=== PATIENT | male | born 1950 | race Caucasian/White ===

== ENCOUNTER 2017-01-24 08:33 | Inpatient (IN) | payer MEDICARE ==
[2017-01-24] MEDS ORDERED: SODIUM CHLORIDE 0.9% 1,000 ML IV ONE (08:42)
--- NOTE | 2017-01-24 08:45 | ED ---
Altered Mental Status HPI - General Stated Complaint: Weakness Time Seen by Provider: 01/24/17 08:33 Source: patient, EMS, RN notes reviewed Mode of arrival: EMS - History of Present Illness Initial Comments: This is a 66-year-old male with a history of insulin-dependent diabetes who was found this morning sitting in his car by his employer. Patient diaphoretic so to respond. Patient states this morning when he got up he had a blood sugar 57 but then he took his insulin and did not eat yet. He stopped at a store gravity coffee a pop any cupcake which she did eat he drove to work and normally is her early but was late. He was found by his employer saying the car. Fire rescue arrived he had a 72 glucose level at that time is slow to respond and somewhat lethargic he has improved and route to. No other complaints at this time. No fevers chills nausea vomiting sweats. Patient states his mistake was taking his insulin with a low blood sugar this morning. No new changes in his insulin or his diet except for not eating this morning. MD Complaint: confusion, decreased responsiveness - Related Data Home Medications Medication Instructions Recorded Confirmed Aspirin 325 mg PO DAILY 01/24/17 01/24/17 Carboxymethylcellulose Sodium 1 drop BOTH EYES TID PRN 01/24/17 01/24/17 [Refresh Tears] Insulin Aspart [NovoLOG] See Protocol SQ AC-TID 01/24/17 01/24/17 Insulin Glargine [Lantus] 40 unit SQ BID 01/24/17 01/24/17 Lisinopril [Zestril] 20 mg PO DAILY 01/24/17 01/24/17 Metoprolol Tartrate [Lopressor] 50 mg PO BID 01/24/17 01/24/17 Simvastatin [Zocor] 40 mg PO HS 01/24/17 01/24/17 metFORMIN HCL [Metformin HCl] 1,000 mg PO BID 01/24/17 01/24/17 Allergies Allergy/AdvReac Type Severity Reaction Status Date / Time No Known Allergies Allergy Verified 01/24/17 09:57 Review of Systems ROS Statement: Those systems with pertinent positive or pertinent negative responses have been documented in the HPI. ROS Other: All systems not noted in ROS Statement are negative. General Exam - General Exam Comments Initial Comments: Is a well-developed well-nourished awake alert oriented 3 male General appearance: alert, in no apparent distress Head exam: Present: atraumatic, normocephalic, normal inspection Eye exam: Present: normal appearance, PERRL, EOMI. Absent: scleral icterus, conjunctival injection, periorbital swelling ENT exam: Present: mucous membranes dry Neck exam: Present: normal inspection. Absent: tenderness, meningismus, lymphadenopathy Respiratory exam: Present: normal lung sounds bilaterally. Absent: respiratory distress, wheezes, rales, rhonchi, stridor Cardiovascular Exam: Present: regular rate, normal rhythm, normal heart sounds. Absent: systolic murmur, diastolic murmur, rubs, gallop, clicks GI/Abdominal exam: Present: soft, normal bowel sounds. Absent: distended, tenderness, guarding, rebound, rigid Extremities exam: Present: normal inspection, full ROM, normal capillary refill. Absent: tenderness, pedal edema, joint swelling, calf tenderness Back exam: Present: normal inspection Neurological exam: Present: alert, oriented X3, CN II-XII intact Psychiatric exam: Present: normal affect, normal mood Skin exam: Present: warm, dry, intact, normal color, other (Patient's skin is currently dry however his clothing is somewhat moist). Absent: rash Course Vital Signs 01/24/17 01/24/17 09:22 10:27 Pulse Rate 61 66 Respiratory 16 17 Rate Blood Pressure 130/66 127/61 O2 Sat by Pulse 98 97 Oximetry - Reevaluation(s) Reevaluation #1: 01/24/17 10:37 Reevaluation the patient patient states he is feeling much improved his family has arrived and states he appears be back to normal. Patient denies having any chest pain shortness of breath or other symptoms other than the sweats and feeling well this morning. Reevaluation #2: 01/24/17 10:38 The patient was noted to become somewhat bradycardic with his heart rate in the upper 30s. He was asymptomatic Medical Decision Making - Medical Decision Making I did discuss the findings with the patient and his family members patient will be admitted he does have an elevated troponin currently no old EKGs are available for comparison. - Lab Data Result diagrams: 01/24/17 09:00 01/24/17 09:00 Lab Results 01/24/17 01/24/17 01/24/17 Range/Units 08:41 09:00 09:00 WBC 12.0 H (3.8-10.6) k/uL RBC 4.85 (4.30-5.90) m/uL Hgb 14.8 (13.0-17.5) gm/dL Hct 45.9 (39.0-53.0) % MCV 94.7 (80.0-100.0) fL MCH 30.4 (25.0-35.0) pg MCHC 32.1 (31.0-37.0) g/dL RDW 13.9 (11.5-15.5) % Plt Count 187 (150-450) k/uL Neutrophils % 85 % Lymphocytes % 7 % Monocytes % 5 % Eosinophils % 2 % Basophils % 1 % Neutrophils # 10.1 H (1.3-7.7) k/uL Lymphocytes # 0.8 L (1.0-4.8) k/uL Monocytes # 0.7 (0-1.0) k/uL Eosinophils # 0.2 (0-0.7) k/uL Basophils # 0.1 (0-0.2) k/uL Sodium (137-145) mmol/L Potassium (3.5-5.1) mmol/L Chloride (98-107) mmol/L Carbon Dioxide (22-30) mmol/L Anion Gap mmol/L BUN (9-20) mg/dL Creatinine (0.66-1.25) mg/dL Est GFR (MDRD) Af Amer (>60 ml/min/1.73 sqM) Est GFR (MDRD) Non-Af (>60 ml/min/1.73 sqM) Glucose (74-99) mg/dL POC Glucose (mg/dL) 117 H (75-99) mg/dL POC Glu [employer] Engineering Teacher ID Naima Jain Calcium (8.4-10.2) mg/dL Magnesium (1.6-2.3) mg/dL Total Bilirubin (0.2-1.3) mg/dL AST (17-59) U/L ALT (21-72) U/L Alkaline Phosphatase (38-126) U/L Total Creatine Kinase 90 (55-170) U/L CK-MB (CK-2) 1.3 (0.0-2.4) ng/mL CK-MB (CK-2) Rel Index 1.4 Troponin I 0.132 H* (0.000-0.034) ng/mL Total Protein (6.3-8.2) g/dL Albumin (3.5-5.0) g/dL 01/24/17 01/24/17 Range/Units 09:00 10:34 WBC (3.8-10.6) k/uL RBC (4.30-5.90) m/uL Hgb (13.0-17.5) gm/dL Hct (39.0-53.0) % MCV (80.0-100.0) fL MCH (25.0-35.0) pg MCHC (31.0-37.0) g/dL RDW (11.5-15.5) % Plt Count (150-450) k/uL Neutrophils % % Lymphocytes % % Monocytes % % Eosinophils % % Basophils % % Neutrophils # (1.3-7.7) k/uL Lymphocytes # (1.0-4.8) k/uL Monocytes # (0-1.0) k/uL Eosinophils # (0-0.7) k/uL Basophils # (0-0.2) k/uL Sodium 140 (137-145) mmol/L Potassium 4.2 (3.5-5.1) mmol/L Chloride 106 (98-107) mmol/L Carbon Dioxide 20 L (22-30) mmol/L Anion Gap 14 mmol/L BUN 12 (9-20) mg/dL Creatinine 0.67 (0.66-1.25) mg/dL Est GFR (MDRD) Af Amer >60 (>60 ml/min/1.73 sqM) Est GFR (MDRD) Non-Af >60 (>60 ml/min/1.73 sqM) Glucose 90 (74-99) mg/dL POC Glucose (mg/dL) 107 H (75-99) mg/dL POC Glu [employer] Engineering Teacher ID Kyrie Sandsle Calcium 9.7 (8.4-10.2) mg/dL Magnesium 1.5 L (1.6-2.3) mg/dL Total Bilirubin 0.7 (0.2-1.3) mg/dL AST 35 (17-59) U/L ALT 26 (21-72) U/L Alkaline Phosphatase 70 (38-126) U/L Total Creatine Kinase (55-170) U/L CK-MB (CK-2) (0.0-2.4) ng/mL CK-MB (CK-2) Rel Index Troponin I (0.000-0.034) ng/mL Total Protein 7.0 (6.3-8.2) g/dL Albumin 4.2 (3.5-5.0) g/dL - EKG Data -: EKG Interpreted by Me EKG shows normal: sinus rhythm (Sinus rhythm rate of 58 CT interval 2:30 QRS of 108 daily since QTC of/400 for 3 AV block left axis deviation low-voltage QRS and complete right bundle-branch block septal changes nonspecific age) - Radiology Data Radiology results: report reviewed (I did review the imaging and reports no acute findings.), image reviewed Critical Care Time Critical Care Time: Yes Critical Care Time: 31 minutes of critical care time which includes the monitoring of the EMS run and discussed with paramedics history physical lab and x-rays. Multiple re- evaluations the patient discussed with the patient regarding findings discussed with the admitting physician discussed with the patient's admission orders and documentation of the above Disposition Clinical Impression: Non-ST elevation myocardial infarction (NSTEMI), Hypoglycemia, Hypomagnesemia Disposition: ADMITTED IP TO THIS [facility] Condition: Stable Referrals: Braydon Torres DO [Primary Care Provider] - 1-2 days
[2017-01-24 08:49] LABS: Glucose,Whole Blood 117 mg/dL (75-99)
[2017-01-24 09:25] LABS: Basophils # (A) 0.1 k/uL (0-0.2); Basophils % (A) 1 %; CH 30.9; CHCM 32.8; Eosinophils # (A) 0.2 k/uL (0-0.7); Eosinophils % (A) 2 %; HCT 45.9 % (39.0-53.0); HDW 2.89; HGB 14.8 gm/dL (13.0-17.5); Luc # (Auto) 0.12; Luc % (Auto) 1; Lymphocytes # (A) 0.8 k/uL (1.0-4.8); Lymphocytes % (A) 7 %; MCH 30.4 pg (25.0-35.0); MCHC 32.1 g/dL (31.0-37.0); MCV 94.7 fL (80.0-100.0); Monocytes # (A) 0.7 k/uL (0-1.0); Monocytes % (A) 5 %; Neutrophils # (A) 10.1 k/uL (1.3-7.7); Neutrophils % (A) 85 %; RBC 4.85 m/uL (4.30-5.90); RDW 13.9 % (11.5-15.5); WBC (Perox) 12.14
[2017-01-24 09:40] LABS: ALT 26 U/L (21-72); AST 35 U/L (17-59); Alkaline Phosphatase 70 U/L (38-126); Anion Gap 14 mmol/L; Blood Urea Nitrogen 12 mg/dL (9-20); Calcium 9.7 mg/dL (8.4-10.2); Carbon Dioxide 20 mmol/L (22-30); Chloride 106 mmol/L (98-107); Glucose 90 mg/dL (74-99); Magnesium 1.5 mg/dL (1.6-2.3); Non-African American GFR(MDRD) >60 (>60 ml/min/1.73 sqM); Sodium 140 mmol/L (137-145); Total Bilirubin 0.7 mg/dL (0.2-1.3)
[2017-01-24 09:42] LABS: Potassium 4.2 mmol/L (3.5-5.1)
--- NOTE | 2017-01-24 09:46 | XR ---
EXAMINATION TYPE: XR chest 2V DATE OF EXAM: 01/24/2017 COMPARISON: NONE HISTORY: Altered mental status TECHNIQUE: Frontal and lateral views of the chest are obtained. FINDINGS: There is no focal air space opacity, pleural effusion, or pneumothorax seen. The cardiac silhouette size is enlarged. Spherical calcification with central lucency present in the region of th e right upper lobe. It measures approximately 2.3 cm. There are overlying cardiac leads. Prominent derek ng volumes suggest COPD. The osseous structures are intact. IMPRESSION: Cardiomegaly. Calcified nodule may be indicative of old granulomatous disease.
[2017-01-24] MEDS ORDERED: MAGNESIUM SULFATE-D5W PMX 1 GM in DEXTROSE/WATER 1 100ML.BAG IVPB ONE (10:06)
[2017-01-24 10:14] LABS: Creatine Kinase MB 1.3 ng/mL (0.0-2.4)
[2017-01-24 10:23] LABS: Troponin I 0.132 ng/mL (0.000-0.034)
[2017-01-24 10:36] LABS: Glucose,Whole Blood 107 mg/dL (75-99)
[2017-01-24] MEDS ORDERED: HEPARIN SODIUM,PORCINE 5,000 UNIT/ML 1 ML VIAL IV ONE (10:42)
[2017-01-24] MEDS ORDERED: NITROGLYCERIN SL TABS 0.4 MG TAB SUBLINGUAL PRN ×2 (10:42→14:01)
[2017-01-24] MEDS ORDERED: HEPARIN SODIUM,PORCINE/D5W PMX 25,000 UNIT in DEXTROSE/WATER 1 500ML.BAG IV SCH (10:45)
[2017-01-24] MEDS ORDERED: ARTIFICIAL TEARS-HYPROMELLOSE DROPS 15 ML BTL BOTH EYES PRN (10:45)
[2017-01-24 12:03] LABS: Glucose,Whole Blood 161 mg/dL (75-99)
[2017-01-24 12:27] LABS: Glucose,Whole Blood 154 mg/dL (75-99)
[2017-01-24] MEDS: SODIUM CHLORIDE 0.9% 1,000 ML IV SCH (12:27)
[2017-01-24] MEDS: INSULIN LISPRO (humaLOG) 300 UNIT/3 ML VIAL SQ SCH ×3 (12:28→21:23)
[2017-01-24] MEDS: NITROGLYCERIN OINT 1 INCH/GM PACKET TOPICAL SCH ×3 (12:31→23:21)
[2017-01-24] MEDS ORDERED: ATORVASTATIN 80 MG TAB PO STA (14:01)
[2017-01-24] MEDS ORDERED: ASPIRIN 325 MG TAB PO STA (14:01)
[2017-01-24] MEDS ORDERED: SODIUM CHLORIDE 0.9% 1,000 ML in EMPTY BAG 1 BAG IV ONE (14:01)
[2017-01-24] MEDS ORDERED: ALPRAZolam 0.25 MG TAB PO PRN (14:01)
[2017-01-24] MEDS ORDERED: ALPRAZolam 0.5 MG TAB PO PRN (14:01)
--- NOTE | 2017-01-24 14:18 | CONS ---
DATE OF CONSULTATION: CHIEF COMPLAINT: 1. Not feeling well. 2. Elevated troponin. This is a 66-year-old gentleman with history of insulin-requiring diabetes, hypertension, dyslipidemia, known coronary artery disease, status post prior myocardial infarction who used to see my associate, Dr. Marinelli, has not been seen by a staffing analyst in awhile. Comes in having had an episode of hypoglycemia where he found himself to be confused, out of sorts, and he has had episodes of hypoglycemia in the past, but also felt that there was something different this time due to which he came to the ER. He does not have any chest pain, does not have difficulty in breathing, palpitations, syncope, or focal neurological deficits. EKG in the ER revealed sinus bradycardia with evidence of prior anteroseptal myocardial infarction and at the time of my evaluation, he is appearing comfortable at rest and is free of symptoms. His troponin was elevated at 0.132. CPK and CK-MB are within normal limits. Creatinine is normal at 0.67. Hemoglobin is 14.8. Past medical history is significant for coronary artery disease, hypertension, dyslipidemia, insulin-requiring diabetes. Medications at home include Zocor 40 q. daily, insulin, metformin, Zestril, Lopressor, aspirin. ALLERGIES: No known drug allergies. FAMILY HISTORY: Negative for premature coronary artery disease. SOCIAL HISTORY: Negative for smoking, EtOH abuse, or drug abuse. REVIEW OF SYSTEMS: HEENT is unremarkable. CARDIAC: As described above. RESPIRATORY: As described above. GI: Negative. GENITOURINARY: Negative. ALLERGY/IMMUNOLOGY: Negative. SKIN: Negative. MUSCULOSKELETAL: Significant for arthritis. PSYCHOSOCIAL: Negative. ENDOCRINE: Negative. HEMATOLOGICAL: Negative. CONSTITUTIONAL: Negative. ONCOLOGICAL: Negative. HEMATOLOGICAL: Negative. The rest of the system review is not relevant. On exam, afebrile. Heart rate is 70 beats per minute, blood pressure 133/96, respirations 18, O2 sat is 98%. There is no jugular venous distention. Carotid upstroke is normal. There is no bruit. Chest is clear to auscultation and percussion. Heart exam reveals first and second heart sounds. No gallop. No murmur, no rub. Abdomen is soft, nontender. Exam of the extremities did not reveal any edema. Peripheral pulses are felt. STEM CLEANING MACHINE FEEDER exam did not reveal focal neurological deficits. Labs show a hemoglobin of 14.8. Platelet count is 187. Troponin is 0.1. Potassium is 4.2. Creatinine is 0.67. EKG is abnormal as described above. ASSESSMENT: 1. Non-ST segment elevation myocardial infarction. 2. Coronary artery disease, status post prior myocardial infarction. 3. Insulin-requiring diabetes with episodes of hypoglycemia. PLAN: Will continue the patient on IV heparin, aspirin, beta blockers, nitrates and MARJORIE inhibitors along with statins. I will obtain 2 more sets of troponins. I will obtain a 2-D echo to assess his LV function. The patient will probably need a heart catheterization for further evaluation.
[2017-01-24 14:59] LABS: Creatine Kinase MB 1.9 ng/mL (0.0-2.4)
[2017-01-24 15:03] LABS: Troponin I 0.119 ng/mL (0.000-0.034)
[2017-01-24 15:16] LABS: Hemoglobin A1C 7.8 % (4.2-6.1)
[2017-01-24] MEDS ORDERED: TEMAZEPAM 15 MG CAP PO PRN (16:49)
[2017-01-24] MEDS ORDERED: HYDROmorphone 1 MG/ML 1 ML SYRINGE IVP PRN (16:49)
[2017-01-24] MEDS ORDERED: HYDROcodone/APAP 5-325MG 1 EACH TAB PO PRN (16:49)
[2017-01-24 17:03] LABS: Glucose,Whole Blood 141 mg/dL (75-99)
[2017-01-24] MEDS: metFORMIN 500 MG TAB PO SCH (17:16)
[2017-01-24] MEDS ORDERED: HEPARIN SODIUM,PORCINE 5,000 UNIT/ML 1 ML VIAL ONE (17:25)
[2017-01-24] MEDS: ATORVASTATIN 20 MG TAB PO SCH (20:24)
[2017-01-24] MEDS: METOPROLOL TARTRATE 50 MG TAB PO SCH (20:24)
[2017-01-24 21:00] LABS: Glucose,Whole Blood 192 mg/dL (75-99)
--- NOTE | 2017-01-24 21:20 | HP ---
DATE OF ADMISSION: 01/24/2017 CHIEF COMPLAINT: Unresponsiveness and as well as hypoglycemia and elevated troponin. HISTORY OF PRESENT ILLNESS: This 66-year-old gentleman with a past history of coronary artery disease, myocardial infarction, diabetes type 2, history of DJD, history of diabetes, history of coronary artery disease, stent being followed by [facility] and in the outpatient setting. Apparently woke up this morning, the blood sugar was 50. Patient went to [employer] and got a donut and a coffee and the patient went to work. That is the last thing the patient remembers. Apparently, the employer found him sitting in his car and EMS was called. Blood sugar was found to be 57 and subsequently 72. The patient was taken to [place] and admitted to the hospital for further evaluation and treatment. On WBC found to be 12 and Troponin is 0.132 and 0.109. There is no history of chest pain, no history of palpitations, headache, or seizures. The patient was admitted to the hospital for further evaluation and treatment. Cardiology evaluation in progress. EKG done on admission, which showed diffuse ST-T changes and Q wave complexes. PAST MEDICAL HISTORY: History of coronary artery disease and stent. History of myocardial infarction, diabetes mellitus , history of hypertension, history of degenerative joint disease. History of coronary artery disease and stent. History of hernia repair. Medications prior to admission include: 1. NovoLog scale. 2. Zocor 40 mg q.h.s. 3. Refresh eye drops one drop both eyes t.i.d. p.r.n. 4. Metformin 1000 mg p.o. b.i.d. 5. Lopressor 50 mg daily. 6. Zestril 20 mg p.o. daily. 7. Lantus 50 units subcu b.i.d. 8. Aspirin 320 mg daily. ALLERGIES: None. FAMILY HISTORY: History of myocardial infarction in the family. SOCIAL HISTORY: Previous history of smoking. Occasional alcohol intake. REVIEW OF SYSTEMS: ENT: No diminished vision. No diminished hearing. CARDIOVASCULAR: as mentioned earlier. RESPIRATORY: As mentioned earlier. GI: No nausea or vomiting. GENITOURINARY: No dysuria. CENTRAL NERVOUS SYSTEM: No numbness or weakness. ALLERGY/IMMUNOLOGY: No asthma, hayfever. MUSCULOSKELETAL: As mentioned earlier. HEMATOLOGY/ONCOLOGY: No history of anemia. ENDOCRINE: History of diabetes mellitus. CONSTITUTIONAL: As mentioned earlier. Dermatology: Negative. RHEUMATOLOGY: Negative. PSYCHIATRY: As mentioned earlier. PHYSICAL EXAMINATION: The patient is alert and oriented times three. Pulse is 70, blood pressure 133/96. Respiratory rate 18. Temperature 97.9. Pulse ox 99% on 2 liters. HEENT: Conjunctivae normal. Oral mucosa moist. NECK: No jugular venous distention. No carotid bruit. No lymph node enlargement. CARDIOVASCULAR: S1, S2 muffled. No S3, no S4. RESPIRATORY: Breath sounds diminished at the bases. No rhonchi, no crackles. ABDOMEN: Soft, nontender. No mass palpable. LEGS: No edema. No swelling. Nervous system: Higher functions as mentioned. Moves all four limbs. No focal deficits. LYMPHATICS: No lymph nodes palpable in the neck, axillae or groin. SKIN: No ulcer, rash or bleeding. LABS: WBC 12, hemoglobin 14.8, glucose 107, troponin 0.132. ASSESSMENT: 1. Change in mental status, metabolic encephalopathy secondary to hypoglycemia. 2. Troponin 0.122, possible acute non- ST segment elevation and elevation myocardial infarction. 3. Hypoglycemia. 4. Increased WBC. 5. History of coronary artery disease and stent and myocardial infarction. 6. History of diabetes type 2. 7. Hypertension. 8. Hyperlipidemia. 9. History of degenerative joint disease. 10. History of hernia repair. 11. 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 12. Right inguinal hernia repair. 13. Remote history of nicotine dependence. 14. FULL CODE. RECOMMENDATIONS AND DISCUSSION: In this 66-year-old gentleman who presented with multiple complex medical issues. We will monitor the patient closely. Continue with the current medications. Continue symptomatic treatment. Otherwise, at this time, I recommend, monitor the blood sugars closely. Otherwise, I would also recommend cardiology consultation, antiplatelet agents and possible further evaluation regarding elevated troponin including cardiac catheterization. Resume the home medications. Prognosis guarded because of multiple complex medical issues. Further recommendations to follow. A copy of dictation is being forwarded to Dr. Torres who is the primary care physician. FARIDA
[2017-01-24] MEDS: INSULIN GLARGINE 100 UNIT/ML 10 ML VIAL SQ SCH (21:23)
[2017-01-24 21:53] LABS: Creatine Kinase MB 1.5 ng/mL (0.0-2.4)
[2017-01-24 21:59] LABS: Troponin I 0.128 ng/mL (0.000-0.034)
[2017-01-25] MEDS ORDERED: HEPARIN SODIUM,PORCINE 5,000 UNIT/ML 1 ML VIAL IV PRN (00:31)
[2017-01-25] MEDS ORDERED: HEPARIN SODIUM,PORCINE 5,000 UNIT/ML 1 ML VIAL IV ONE (00:31)
[2017-01-25 06:02] LABS: Glucose,Whole Blood 156 mg/dL (75-99)
[2017-01-25] MEDS: NITROGLYCERIN OINT 1 INCH/GM PACKET TOPICAL SCH ×3 (06:32→17:11)
[2017-01-25] MEDS: LISINOPRIL 20 MG TAB PO SCH (06:35)
[2017-01-25] MEDS: PANTOPRAZOLE 40 MG TABLET PO SCH (06:35)
[2017-01-25] MEDS: METOPROLOL TARTRATE 50 MG TAB PO SCH ×2 (06:35→21:31)
[2017-01-25] MEDS: ASPIRIN 325 MG TAB PO SCH (06:35)
[2017-01-25 06:38] LABS: Basophils # (A) 0.1 k/uL (0-0.2); Basophils % (A) 1 %; CH 31.1; CHCM 32.9; Eosinophils # (A) 0.3 k/uL (0-0.7); Eosinophils % (A) 3 %; HCT 42.3 % (39.0-53.0); HDW 2.82; HGB 13.9 gm/dL (13.0-17.5); Luc # (Auto) 0.15; Luc % (Auto) 2; Lymphocytes # (A) 1.5 k/uL (1.0-4.8); Lymphocytes % (A) 19 %; MCH 31.2 pg (25.0-35.0); MCHC 32.8 g/dL (31.0-37.0); Monocytes # (A) 0.4 k/uL (0-1.0); Monocytes % (A) 5 %; Neutrophils # (A) 5.6 k/uL (1.3-7.7); Neutrophils % (A) 70 %; RBC 4.45 m/uL (4.30-5.90); RDW 13.9 % (11.5-15.5); WBC (Perox) 8.48
[2017-01-25 06:47] LABS: Partial Thromboplastin Time 57.4 sec (22.0-30.0)
[2017-01-25 06:58] LABS: Anion Gap 11 mmol/L; Blood Urea Nitrogen 9 mg/dL (9-20); Calcium 9.2 mg/dL (8.4-10.2); Carbon Dioxide 23 mmol/L (22-30); Chloride 107 mmol/L (98-107); Cholesterol 156 mg/dL (<200); Glucose 152 mg/dL (74-99); HDL Cholesterol 43 mg/dL (40-60); Non-African American GFR(MDRD) >60 (>60 ml/min/1.73 sqM); Sodium 141 mmol/L (137-145); Triglycerides 136 mg/dL (<150)
[2017-01-25] MEDS: INSULIN LISPRO (humaLOG) 300 UNIT/3 ML VIAL SQ SCH ×4 (08:34→21:31)
[2017-01-25] MEDS ORDERED: IV FLUID CONTINUATION 1,000 ML IV ONE (08:50)
[2017-01-25] MEDS ORDERED: ASPIRIN 325 MG TAB PO SCH (09:00)
[2017-01-25] MEDS ORDERED: LIDOCAINE 2% INJ 20 MG/ML (20 ML MDV) ONE (09:01)
[2017-01-25] MEDS ORDERED: MIDAZOLAM 2 MG/2 ML VIAL ONE (09:11)
[2017-01-25] MEDS ORDERED: MIDAZOLAM 2 MG/2 ML VIAL IV ONE (09:13)
[2017-01-25] MEDS ORDERED: LIDOCAINE 2% INJ 20 MG/ML SQ ONE (09:15)
[2017-01-25] MEDS ORDERED: fentaNYL (PF) 50 MCG/ML 2 ML AMP ONE (09:17)
[2017-01-25] MEDS ORDERED: fentaNYL (PF) 50 MCG/ML 2 ML AMP IV ONE (09:19)
[2017-01-25] MEDS ORDERED: IOHEXOL 350 MG/ML 125ML BOTTLE INJ ONE (09:31)
[2017-01-25] MEDS ORDERED: RX INFO: IV CONTRAST WAS GIVEN 1 EACH MISC MISCELLANE PRN (09:48)
[2017-01-25] MEDS: metFORMIN 500 MG TAB PO SCH (10:07)
--- NOTE | 2017-01-25 10:10 | CC ---
INDICATION: Unstable angina in a patient with known CAD, status post prior myocardial infarction and angioplasty. PROCEDURE NOTE: After obtaining informed consent, left heart catheterization and coronary angiogram were performed via the right femoral artery using standard Sherry catheters. A femoral angiogram was performed and Angio-Seal was deployed for hemostasis at the end of the procedure. TOTAL SEDATION TIME: 30 minutes. This was conscious sedation. FINDINGS: 1. Hemodynamics: Left ventricular end-diastolic pressure is 16 mm. There is no significant gradient across the aortic valve. 2. Left ventriculogram: Left ventriculogram is performed, shows a dilated left ventricle with moderate LV dysfunction with an ejection fraction of 35%. There is apical hypokinesis and the basal inferior wall is hypokinetic. 3. Angiographic data: a. Right coronary artery: Right coronary artery is chronically occluded in its mid portion with extensive left to right collaterals to the distal RCA. b. Left main coronary artery appears calcified; in fact, the entire left coronary system appears calcified and can be visualized under fluoro. Left main itself is free of stenosis, divides into left anterior descending coronary artery and circumflex coronary artery. The OM branch was previously stented and the stent was patent. Proximal to the origin of the OM branch, there is a 60% to 70% stenosis. c. LAD shows multiple areas of segmental stenosis involving proximal, mid and distal, but it is diffusely diseased and there is no clear segment in the LAD that can be easily bypassed. There are 2 small caliber diagonal branches that are diffusely diseased. CONCLUSIONS: 1. Three-vessel coronary artery disease with chronic total occlusion of the right with [id number] collaterals. 2. Severe disease involving left anterior descending coronary artery, including in-stent re-stenosis and multiple segmental areas of stenosis. 3. Circumflex coronary artery shows a 60% to 70% stenosis in the obtuse marginal branch where the stent is patent, but in the very distal portion, there is an 80% to 90% stenosis. PLAN: I reviewed the angiographic data with Dr. Gunderson, the on-call material carrier. The patient has coronaries that are high risk for angioplasty both because of the technical risk involved because of heavily calcified vessels and also because the chance of recurrence is high. I am going to ask a cardiothoracic surgeon to evaluate the angiographic data and see if the targets are suitable for bypass.
[2017-01-25] MEDS: INSULIN GLARGINE 100 UNIT/ML 10 ML VIAL SQ SCH ×2 (10:21→21:31)
[2017-01-25] MEDS ORDERED: MD COMMUNICATION TO PHARMACY 1 EACH MISC PO ONE ×2 (10:26)
[2017-01-25 11:21] LABS: INR 1.1 (<1.1); Prothrombin Time 11.4 sec (9.0-12.0)
[2017-01-25 11:33] LABS: ALT 22 U/L (21-72); AST 20 U/L (17-59); Alkaline Phosphatase 72 U/L (38-126); Magnesium 1.4 mg/dL (1.6-2.3); Total Bilirubin 0.7 mg/dL (0.2-1.3); Total Protein 6.5 g/dL (6.3-8.2)
--- NOTE | 2017-01-25 11:40 | ECHOF ---
Referral Reason:chest pain MEASUREMENTS -------- HEIGHT: 180.3 cm WEIGHT: 103.9 kg BP: 133/96 IVSd: 1.5 cm (0.6 - 1.1) LVIDd: 5.4 cm (3.9 - 5.3) LVPWd: 1.5 cm (0.6 - 1.1) IVSs: 2.3 cm LVIDs: 3.4 cm LVPWs: 2.1 cm LAESV Index (A-L): 22.77 ml/m Ao Diam: 3.6 cm (2.0 - 3.7) AV Cusp: 1.8 cm (1.5 - 2.6) MV EXCURSION: 11.323 mm (> 18.000) MV EF SLOPE: 52 mm/s (70 - 150) EPSS: 1.0 cm MV E Hermilo: 1.00 m/s MV DecT: 293 ms MV A Hermilo: 1.07 m/s MV E/A Ratio: 0.93 FINDINGS -------- Sinus rhythm. This was a technically adequate study. There is moderate concentric left ventricular hypertrophy. Overall left ventricular systolic function is low-normal with, an EF between 50 - 55 %. The right ventricle is normal in size and function. Normal LA size by volume 22+/-6 ml/m2. The right atrium is normal in size. Aortic valve is trileaflet and is mildly thickened. There is no evidence of aortic regurgitation. There is no evidence of aortic stenosis. The mitral valve leaflets are mildly thickened. Mild mitral annular calcification present. There is trace to mild mitral regurgitation. Trace tricuspid regurgitation present. There is no evidence of pulmonary hypertension. The right ventricular systolic pressure, as measured by Doppler, is {RVSP}. The pulmonic valve is normal. The aortic root size is normal. Normal inferior vena cava with normal inspiratory collapse consistent with estimated right atrial pressure of 5 mmHg. The pericardium is normal. There is no pericardial effusion. CONCLUSIONS -------- 1. Sinus rhythm. 2. There is no evidence of pulmonary hypertension. 3. The right ventricular systolic pressure, as measured by Doppler, is {RVSP}. 4. The aortic root size is normal. 5. There is no pericardial effusion. 6. There is moderate concentric left ventricular hypertrophy. 7. Overall left ventricular systolic function is low-normal with, an EF between 50 - 55 %. 8. Normal LA size by volume 22+/-6 ml/m2. 9. Aortic valve is trileaflet and is mildly thickened. 10. The mitral valve leaflets are mildly thickened. 11. Mild mitral annular calcification present. 12. There is trace to mild mitral regurgitation. 13. Trace tricuspid regurgitation present. LEAD ARCHITECT: Sekou Huber RDCS
[2017-01-25 12:03] LABS: Glucose,Whole Blood 177 mg/dL (75-99)
[2017-01-25 12:04] LABS: Hepatitis B Surface Ag Index 0.05
[2017-01-25 12:10] LABS: Hepatitis B Core IgM Index 0.01
[2017-01-25 12:21] LABS: Hepatitis C Virus IgG Ab Negative (Negative); Hepatitis C Virus IgG Index 0.03
[2017-01-25 14:28] LABS: Appearance,Urine Clear (Clear); Bilirubin,Urine Negative (Negative); Glucose,Urine (UA) Negative (Negative); Ketones,Urine Negative (Negative); Leukocyte Esterase,Urine Negative (Negative); Nitrite,Urine Negative (Negative); PH, Urine 5.5 (5.0-8.0); Protein,Urine Negative (Negative); Specific Gravity,Urine 1.015 (1.001-1.035); UA Billing (MACRO vs. MICRO) CHEM; Urobilinogen,Urine <2.0 mg/dL (<2.0)
--- NOTE | 2017-01-25 15:37 | P.GSCN ---
History of Present Illness Consult date: 01/25/17 Reason for Consult: Evaluation for potential coronary artery bypass grafting Requesting physician: Jamel Amaro History of present illness: Patient is a 66 years old with past medical history of coronary artery disease status post stenting, myocardial infarction, type 2 diabetes mellitus, degenerative joint disease, who was admitted for an episode of hypoglycemia. He was also found to have mild troponin elevation. Patient has no history of chest pain. Cardiac catheterization performed today in view of the troponin leak and the diffuse ST segment changes on EKG showed triple-vessel coronary artery disease. Cardiothoracic surgical consult was called. Patient is status post stenting to circumflex artery in 2000 and to his LAD in 2001. 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 Past Anesthesia/Blood Transfusion Reactions: No Reported Reaction Date of Last Stent Placement:: 1999 Past Psychological History: No Psychological Hx Reported Additional Psychological History / Comment(s): Pt resides with his spouse. He is independent. He is a [place] . He served in [employer] from [id number]. Smoking Status: Former smoker Past Alcohol Use History: Occasional Additional Past Alcohol Use History / Comment(s): Pt started smoking as teen and quit during the time he served in [employer]. Past Drug Use History: None Reported - Past Family History Father Family Medical History: Myocardial Infarction ([place]) Additional Family Medical History / Comment(s): Father of a [place] at the age of 55yrs. Mother Family Medical History: Diabetes Mellitus Additional Family Medical History / Comment(s): Mother of complications of diabetes at the age of 56yrs. Medications and Allergies Home Medications Medication Instructions Recorded Confirmed Type Aspirin 325 mg PO DAILY 01/24/17 01/24/17 History Carboxymethylcellulose Sodium 1 drop BOTH EYES TID PRN 01/24/17 01/24/17 History [Refresh Tears] Insulin Aspart [NovoLOG] See Protocol SQ AC-TID 01/24/17 01/24/17 History Insulin Glargine [Lantus] 40 unit SQ BID 01/24/17 01/24/17 History Lisinopril [Zestril] 20 mg PO DAILY 01/24/17 01/24/17 History Metoprolol Tartrate [Lopressor] 50 mg PO BID 01/24/17 01/24/17 History Simvastatin [Zocor] 40 mg PO HS 01/24/17 01/24/17 History metFORMIN HCL [Metformin HCl] 1,000 mg PO BID 01/24/17 01/24/17 History Allergies Allergy/AdvReac Type Severity Reaction Status Date / Time No Known Allergies Allergy Verified 01/24/17 09:57 Surgical - Exam Vital Signs Pulse Resp BP Pulse Ox 61 16 130/66 98 01/24/17 09:22 01/24/17 09:22 01/24/17 09:22 01/24/17 09:22 - General well developed, well nourished, no distress - ENT no hearing loss, no congestion - Neck no masses, trachea midline - Respiratory normal respiratory effort, clear to auscultation - Cardiovascular Rhythm: regular Heart Sounds: normal: S1, S2 - Abdomen Obese - Genitourinary Deferred - Rectum Deferred - Integumentary no rash, no abnormal pigmentation - Neurologic no disoriented, no combative - Psychiatric oriented to time, oriented to person, oriented to place, speech is normal, memory intact Results - Labs 01/25/17 05:50 01/25/17 05:50 Abnormal Lab Results - Last 24 Hours (Table) 01/24/17 01/24/17 01/24/17 Range/Units 14:12 16:53 17:02 APTT 30.8 H (22.0-30.0) sec Glucose (74-99) mg/dL POC Glucose (mg/dL) 141 H (75-99) mg/dL Hemoglobin A1c 7.8 H (4.2-6.1) % Magnesium (1.6-2.3) mg/dL Total Creatine Kinase (55-170) U/L Troponin I (0.000-0.034) ng/mL 01/24/17 01/24/17 01/24/17 Range/Units 20:59 21:08 23:35 APTT 37.5 H (22.0-30.0) sec Glucose (74-99) mg/dL POC Glucose (mg/dL) 192 H (75-99) mg/dL Hemoglobin A1c (4.2-6.1) % Magnesium (1.6-2.3) mg/dL Total Creatine Kinase 54 L (55-170) U/L Troponin I 0.128 H* (0.000-0.034) ng/mL 01/25/17 01/25/17 01/25/17 Range/Units 05:50 05:50 06:01 APTT 57.4 H (22.0-30.0) sec Glucose 152 H (74-99) mg/dL POC Glucose (mg/dL) 156 H (75-99) mg/dL Hemoglobin A1c (4.2-6.1) % Magnesium 1.4 L (1.6-2.3) mg/dL Total Creatine Kinase (55-170) U/L Troponin I (0.000-0.034) ng/mL 01/25/17 Range/Units 11:55 APTT (22.0-30.0) sec Glucose (74-99) mg/dL POC Glucose (mg/dL) 177 H (75-99) mg/dL Hemoglobin A1c (4.2-6.1) % Magnesium (1.6-2.3) mg/dL Total Creatine Kinase (55-170) U/L Troponin I (0.000-0.034) ng/mL Diabetes panel 01/24/17 01/25/17 Range/Units 14:12 05:50 Sodium 141 (137-145) mmol/L Potassium 4.0 (3.5-5.1) mmol/L Chloride 107 (98-107) mmol/L Carbon Dioxide 23 (22-30) mmol/L BUN 9 (9-20) mg/dL Creatinine 0.70 (0.66-1.25) mg/dL Glucose 152 H (74-99) mg/dL Hemoglobin A1c 7.8 H (4.2-6.1) % Calcium 9.2 (8.4-10.2) mg/dL AST 20 (17-59) U/L ALT 22 (21-72) U/L Alkaline Phosphatase 72 (38-126) U/L Total Protein 6.5 (6.3-8.2) g/dL Albumin 3.8 (3.5-5.0) g/dL Triglycerides 136 (<150) mg/dL HDL Cholesterol 43 (40-60) mg/dL Thyroid panel 01/25/17 Range/Units 05:50 TSH 0.884 (0.465-4.680) mIU/L Calcium panel 01/25/17 Range/Units 05:50 Calcium 9.2 (8.4-10.2) mg/dL Albumin 3.8 (3.5-5.0) g/dL Pituitary panel 01/25/17 Range/Units 05:50 Sodium 141 (137-145) mmol/L Potassium 4.0 (3.5-5.1) mmol/L Chloride 107 (98-107) mmol/L Carbon Dioxide 23 (22-30) mmol/L BUN 9 (9-20) mg/dL Creatinine 0.70 (0.66-1.25) mg/dL Glucose 152 H (74-99) mg/dL Calcium 9.2 (8.4-10.2) mg/dL TSH 0.884 (0.465-4.680) mIU/L Adrenal panel 01/25/17 Range/Units 05:50 Sodium 141 (137-145) mmol/L Potassium 4.0 (3.5-5.1) mmol/L Chloride 107 (98-107) mmol/L Carbon Dioxide 23 (22-30) mmol/L BUN 9 (9-20) mg/dL Creatinine 0.70 (0.66-1.25) mg/dL Glucose 152 H (74-99) mg/dL Calcium 9.2 (8.4-10.2) mg/dL Total Bilirubin 0.7 (0.2-1.3) mg/dL AST 20 (17-59) U/L ALT 22 (21-72) U/L Alkaline Phosphatase 72 (38-126) U/L Total Protein 6.5 (6.3-8.2) g/dL Albumin 3.8 (3.5-5.0) g/dL - Imaging Additional studies: 2-D echo showed mild left ventricular dysfunction and no significant valvular abnormalities Cardiac catheterization showed a chronically known occluded right coronary artery, mild proximal circumflex stenosis with a patent stent in the very distal obtuse marginal stenosis. His LAD had severe in-stent and beyond the stent stenosis with diffuse disease in the mid to distal left anterior descending artery. Assessment and Plan Plan: 66 years old gentleman diabetic with a prior history of stenting and myocardial infarction. Patient had stent to his LAD and circumflex artery around 16 years ago. Current anatomy is not favorable for surgery especially in view of the diffuse disease of the distal left anterior descending artery and the absence of significant stenosis in the circumflex system. I would recommend PTCA stenting to his left anterior descending artery as a first step. This has been discussed with Dr. Amaro and with the patient in front of his daughter. Should you have any questions or concerns please don't hesitate to call me. Thank you for the privilege of this consult.
[2017-01-25 17:00] LABS: Glucose,Whole Blood 176 mg/dL (75-99)
[2017-01-25] MEDS: ATORVASTATIN 20 MG TAB PO SCH (21:31)
[2017-01-25 21:32] LABS: Glucose,Whole Blood 130 mg/dL (75-99)
[2017-01-26] MEDS: NITROGLYCERIN OINT 1 INCH/GM PACKET TOPICAL SCH ×2 (00:03→06:06)
[2017-01-26] MEDS: SODIUM CHLORIDE 0.9% 1,000 ML IV SCH ×5 (06:05→14:49)
[2017-01-26 06:14] LABS: Glucose,Whole Blood 95 mg/dL (75-99)
[2017-01-26 06:30] LABS: Basophils # (A) 0.1 k/uL (0-0.2); Basophils % (A) 1 %; CH 31.2; CHCM 33.1; Eosinophils # (A) 0.3 k/uL (0-0.7); Eosinophils % (A) 3 %; HCT 42.2 % (39.0-53.0); HDW 2.81; HGB 13.5 gm/dL (13.0-17.5); Luc # (Auto) 0.15; Luc % (Auto) 2; Lymphocytes # (A) 1.5 k/uL (1.0-4.8); Lymphocytes % (A) 19 %; MCH 30.4 pg (25.0-35.0); MCV 94.8 fL (80.0-100.0); Mean Platelet Volume 7.6; Monocytes # (A) 0.5 k/uL (0-1.0); Monocytes % (A) 6 %; Neutrophils # (A) 5.3 k/uL (1.3-7.7); Neutrophils % (A) 68 %; RBC 4.45 m/uL (4.30-5.90); RDW 13.9 % (11.5-15.5); WBC 7.8 k/uL (3.8-10.6); WBC (Perox) 7.76
[2017-01-26 06:42] LABS: Anion Gap 10 mmol/L; Blood Urea Nitrogen 10 mg/dL (9-20); Calcium 9.1 mg/dL (8.4-10.2); Carbon Dioxide 23 mmol/L (22-30); Chloride 107 mmol/L (98-107); Glucose 91 mg/dL (74-99); Non-African American GFR(MDRD) >60 (>60 ml/min/1.73 sqM); Potassium 3.9 mmol/L (3.5-5.1); Sodium 140 mmol/L (137-145)
[2017-01-26] MEDS: INSULIN LISPRO (humaLOG) 300 UNIT/3 ML VIAL SQ SCH ×3 (06:51→17:15)
[2017-01-26] MEDS: PANTOPRAZOLE 40 MG TABLET PO SCH (07:24)
--- NOTE | 2017-01-26 07:43 | PN ---
DATE OF SERVICE: 01/25/2017 This 66-year-old gentleman who was admitted with change in mental status and metabolic encephalopathy secondary to hypoglycemia, also had elevated troponin. The patient had a cardiac catheterization and the cardiac cath showed 3-vessel disease. The patient was seen by Dr. Larose and thought the coronary anatomy was not favorable for , recommend PTCA and stenting of the LAD as a first step was recommended. No chest or palpitation. No fever at this time. On exam, alert and oriented x3. Pulse is 70, blood pressure 118/66, respirations 20, temperature 98.4, pulse ox 94% on room air. HEENT: Conjunctivae normal. . NECK: No jugular venous distention. CARDIOVASCULAR: S1 and S2, muffled. RESPIRATORY: Breath sounds diminished at the bases. No rhonchi, no crackles. ABDOMEN: Soft, nontender. LEGS: No edema, no swelling. NERVOUS SYSTEM: No focal deficits. LABS: Glucose 176 and magnesium 1.4. ASSESSMENT: 1. Acute non-ST segment elevation myocardial infarction with a troponin of 0.132 present on admission with status post cardiac catheterization and 3-vessel coronary artery disease. 2. Change in mental status, metabolic encephalopathy secondary to hypoglycemia. 3. Increased WBC. 4. History of coronary artery disease and stent and myocardial infarction. 5. History of diabetes mellitus type 2. 6. Hypertension, essential. 7. Hyperlipidemia. 8. History of degenerative joint disease. 9. History of hernia repair. 10. 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 11. History of inguinal hernia repair right. 12. Remote history of nicotine dependence. 13. FULL CODE. RECOMMENDATIONS AND DISCUSSION: Recommend to continue current medications. Continue symptomatic treatment. Otherwise, at this time I would recommend continue the antiplatelets and follow closely with Cardiology. Possible stenting versus surgery. Further recommendations to follow. MTDD
[2017-01-26] MEDS: ASPIRIN 325 MG TAB PO SCH (08:21)
[2017-01-26] MEDS: LISINOPRIL 20 MG TAB PO SCH (08:21)
[2017-01-26] MEDS: METOPROLOL TARTRATE 50 MG TAB PO SCH (08:21)
[2017-01-26] MEDS: INSULIN GLARGINE 100 UNIT/ML 10 ML VIAL SQ SCH (09:11)
--- NOTE | 2017-01-26 10:53 | P.PN ---
Subjective Principal diagnosis: Non-STEMI This is a 66-year-old gentleman with history of hypertension, diabetes , hyperlipidemia, prior coronary artery disease, who presented to the hospital with a non-STEMI. He was taken to the cardiac catheterization lab by Dr. Amaro yesterday where the patient was found to have three-vessel coronary artery disease with a [employer] CONS[employer] of the right with [id number] collaterals, severe disease involving the LAD, including in-stent restenosis and multiple segmental areas of stenosis, circumflex coronary artery 60-70% disease in the obtuse marginal was stented is patent, but in the very distal portion there is an 80-90% stenosis. Cardiothoracic surgery was consulted to see the patient and felt that he was not a candidate for surgery. Dr. Amaro did speak with Dr Gunderson regarding the patient and the decision was made to maximize medical therapy. Patient was seen and examined this morning, denies any chest pain or difficulty in breathing. Blood pressure 130/60, heart rate in the 70s. CBC normal. Potassium 3.9, BUN 10, creatinine 0.7. Objective - Vital Signs Vital signs: Vital Signs Temp 98.4 F 01/26/17 08:00 Pulse 73 01/26/17 09:24 Resp 16 01/26/17 08:00 BP 116/58 01/26/17 09:24 Pulse Ox 96 01/26/17 09:24 Intake & Output 01/25/17 01/26/17 01/26/17 18:59 06:59 18:59 Intake Total 1400 600 Output Total 1775 1999 Balance -375 -1400 Weight 100.5 kg Intake: IV 1100 600 Sodium Chloride 0.9% 1, 1000 000 ml @ 100 mls/hr IV . Q10H ONE Rx#:[id number] Sodium Chloride 0.9% 1, 600 000 ml @ 75 mls/hr IV . [id number] [facility] Rx#:[id number] Oral 300 Output: Urine 1774 1999 Other: Voiding Method Urinal Urinal # Voids 2 - Exam PHYSICAL EXAMINATION: HEENT: Head is atraumatic, normocephalic. Pupils equal, round. Neck is supple. There is no elevated jugular venous pressure. HEART EXAMINATION: Heart S1, S2 normal. No murmur or gallop heard. CHEST EXAMINATION: Lungs are clear to auscultation and precussion. No chest wall tenderness is noted on palpation or with deep breathing. ABDOMEN: Soft, obese, nontender. Bowel sounds are heard. No organomegaly noted. Right groin soft, no evidence of any hematoma. EXTREMITIES: 2+ peripheral pulses with no evidence of peripheral edema and no calf tenderness noted. NEUROLOGIC patient is awake, alert and oriented -3. . - Labs CBC & Chem 7: 01/26/17 05:51 01/26/17 05:51 Labs: Abnormal Lab Results - Last 24 Hours (Table) 01/25/17 01/25/17 01/25/17 Range/Units 05:50 05:50 11:55 APTT 57.4 H (22.0-30.0) sec Glucose 152 H (74-99) mg/dL POC Glucose (mg/dL) 177 H (75-99) mg/dL Magnesium 1.4 L (1.6-2.3) mg/dL 01/25/17 01/25/17 Range/Units 16:56 21:30 APTT (22.0-30.0) sec Glucose (74-99) mg/dL POC Glucose (mg/dL) 176 H 130 H (75-99) mg/dL Magnesium (1.6-2.3) mg/dL Microbiology - Last 24 Hours (Table) 01/25/17 14:15 Urine Culture - Preliminary Urine,Voided Assessment and Plan (1) HTN (hypertension) Status: Acute (2) Hyperlipemia Status: Acute (3) Diabetes Status: Acute (4) CAD (coronary artery disease) Status: Acute (5) S/P cardiac catheterization Status: Acute (6) Hypoglycemia Status: Acute (7) Hypomagnesemia Status: Acute (8) Non-ST elevation myocardial infarction (NSTEMI) Status: Acute Plan: From cardiology's perspective, patient may be able to be discharged home on maximal medical therapy which includes aspirin 81 mg daily, Lipitor 40 mg daily , Cipro 20 mg daily, metoprolol tartrate 50 mg one tablet by mouth 3 times a day , we will discontinue the Nitropaste and put the patient on a small dose of Imdur. A follow-up appointment will be made in the office for the patient to see Dr. Amaro in 3 weeks. \ DNP note has been reviewed, I agree with a documented findings and plan of care. Patient was seen and examined.
[2017-01-26] MEDS ORDERED: ISOSORBIDE MONONITRATE ER 30 MG TAB.ER.24H PO SCH (11:00)
[2017-01-26 11:51] VITALS: RESP 18
[2017-01-26 12:10] LABS: Glucose,Whole Blood 153 mg/dL (75-99)
--- NOTE | 2017-01-26 13:01 | PN ---
ADDENDUM: A 66-year-old gentleman who is admitted to hospital with mild non-ST segment elevation [place], underwent cardiac catheterization that revealed diffuse 3-vessel coronary artery disease. This morning he is chest pain free, hemodynamically stable and is ambulating well. His angiographic data was reviewed by the cardiothoracic surgeons, who felt that he was not a candidate for surgical revascularization, has been reviewed by Dr. Gunderson, the on-call geothermal installer, who felt that he is at high at rest for restenosis. So the plan at this stage is to treat him with optimal medical therapy. Discharge him home and see how he does clinically. If he is doing well clinically, will continue with medical therapy. If he develops episodes of chest pain or shortness of breath, will bring him back and do high risk angioplasty of the LAD.
[2017-01-26] MEDS ORDERED: CLOPIDOGREL 75 MG TAB PO SCH (14:00)
[2017-01-26 16:54] LABS: Glucose,Whole Blood 135 mg/dL (75-99)
[2017-01-26 17:33] VITALS: BP 117/61; PULSE 71; TEMP 98
[2017-01-27] MEDS ORDERED: ASPIRIN 81 MG CHEW PO SCH (09:00)
[2017-01-27] MEDS ORDERED: ATORVASTATIN 40 MG TAB PO SCH (09:00)
--- NOTE | 2017-01-27 18:17 | DS ---
DATE OF ADMISSION: 01/24/2017 DATE OF DISCHARGE: 01/26/2017 FINAL DIAGNOSES: 1. Acute non-ST elevation myocardial infarction with a troponin 0.132, present on admission, status post cardiac catheterization and 3-vessel coronary artery disease. 2. Change in mental status, metabolic encephalopathy secondary to hypoglycemia. 3. Increased WBC. 4. History of coronary artery disease, myocardial infarction. 5. History of diabetes mellitus type 2. 6. Hypertension, essential. 7. Hyperlipidemia. 8. History of degenerative joint disease. 9. History of hernia repair. 10. Second toe amputation because of bone infection. 11. History of inguinal hernia repair, right. 12. Remote history of nicotine dependence. 13. FULL CODE. DISCHARGE DISPOSITION: The patient will be discharged in a stable condition with guarded prognosis. HISTORY OF PRESENT ILLNESS: This 66-year-old gentleman with a past medical history of multiple medical problems was admitted with acute non-ST segment elevation myocardial infarction and hypoglycemia. The patient was treated with symptomatically by Cardiology. Per cardiac catheterization, he has 3-vessel disease. Case was discussed with Cardiothoracic Surgery, who recommended medical treatment to which Cardiology concurred. Please refer to the Cardiology. The patient was also evaluated Cardiology he was thought to be at high risk for stent re-stenosis and the medical treatment was optimized. On exam, vitals are stable. CARDIOVASCULAR: S1 and S2 muffled. NERVOUS SYSTEM: No focal deficits. DISCHARGE ADVICE: 1. Diet is cardiac. 2. Activity limited until followup. 3. Follow up with Dr. Torres in 2 to 3 days. 4. Follow up to with Dr. Amaro as recommended. 5. Medications will be: a. Ecotrin 81 mg p.o. daily. b. Lipitor 40 mg p.o. daily. c. Refresh eye drops 1 p.o. daily. d. Plavix 75 mg p.o. daily. e. NovoLog scale. f. Lantus 40 units subcu b.i.d. g. Imdur ER 30 mg p.o. daily. h. Lasix 20 mg p.o. daily. i. Metformin 1000 mg p.o. b.i.d. j. Lopressor 50 mg. k. Nitrostat 0.4 sublingual p.r.n. Once again, the patient will be discharged in a stable condition with guarded prognosis. MTDD
== END 2017-01-26 18:01 | disposition home or self-care (01) | DRG 280 ==
LOC: EC 08:33 → 6SEL 10:46
PROVIDERS: ADMIT Hospitalist; ATTEND Hospitalist
PROC: B211YZZ Fluoroscopy of Multiple Coronary Arteries using Other Contrast (ICD-10-PCS; 2017-01-25)
PROC: B215YZZ Fluoroscopy of Left Heart using Other Contrast (ICD-10-PCS; 2017-01-25)
PROC: 4A023N7 Measurement of Cardiac Sampling and Pressure, Left Heart, Percutaneous Approach (ICD-10-PCS; principal; 2017-01-25 08:50)
DX: I21.4 Non-ST elevation (NSTEMI) myocardial infarction (principal); G93.41 Metabolic encephalopathy; E11.649 Type 2 diabetes mellitus with hypoglycemia without coma; E83.42 Hypomagnesemia; T82.855A Stenosis of coronary artery stent, initial encounter; I25.110 Atherosclerotic heart disease of native coronary artery with unstable angina pectoris; I10 Essential (primary) hypertension; E78.5 Hyperlipidemia, unspecified; I25.2 Old myocardial infarction; M20.001 Unspecified deformity of right finger(s); M19.91 Primary osteoarthritis, unspecified site; Z87.891 Personal history of nicotine dependence; Z79.82 Long term (current) use of aspirin; Z79.84 Long term (current) use of oral hypoglycemic drugs; Z79.4 Long term (current) use of insulin; Z79.899 Other long term (current) drug therapy; Z89.421 Acquired absence of other right toe(s); Z82.49 Family history of ischemic heart disease and other diseases of the circulatory system; Z83.3 Family history of diabetes mellitus; Y83.1 Surgical operation with implant of artificial internal device as the cause of abnormal reaction of the patient, or of later complication, without mention of misadventure at the time of the procedure
CPT/HCPCS: 36415; 71020; 80048; 80053; 80061; 80074; 81003; 82550; 82553; 83036; 83735; 84443; 84484; 85025; 85610; 85730; 87086; 93005; 93306; 93458

== ENCOUNTER 2017-02-09 23:30 | Inpatient (IN) | payer MEDICARE ==
[2017-02-09] MEDS ORDERED: ASPIRIN 81 MG CHEW PO STA (23:46)
[2017-02-09 23:54] LABS: Basophils # (A) 0.1 k/uL (0-0.2); Basophils % (A) 1 %; CH 30.6; CHCM 32.7; Eosinophils # (A) 0.3 k/uL (0-0.7); Eosinophils % (A) 3 %; HCT 43.1 % (39.0-53.0); HDW 2.99; HGB 13.9 gm/dL (13.0-17.5); Luc # (Auto) 0.19; Luc % (Auto) 2; Lymphocytes # (A) 1.1 k/uL (1.0-4.8); Lymphocytes % (A) 12 %; MCH 30.3 pg (25.0-35.0); MCHC 32.2 g/dL (31.0-37.0); MCV 94.3 fL (80.0-100.0); Mean Platelet Volume 7.6; Monocytes # (A) 0.5 k/uL (0-1.0); Monocytes % (A) 6 %; Neutrophils # (A) 6.9 k/uL (1.3-7.7); Neutrophils % (A) 76 %; RBC 4.58 m/uL (4.30-5.90); RDW 13.6 % (11.5-15.5); WBC (Perox) 9.23
[2017-02-10 00:02] LABS: ALT 37 U/L (21-72); AST 25 U/L (17-59); Alkaline Phosphatase 125 U/L (38-126); Anion Gap 13 mmol/L; Blood Urea Nitrogen 11 mg/dL (9-20); Calcium 9.5 mg/dL (8.4-10.2); Carbon Dioxide 23 mmol/L (22-30); Chloride 103 mmol/L (98-107); Glucose 290 mg/dL (74-99); Magnesium 1.5 mg/dL (1.6-2.3); Non-African American GFR(MDRD) >60 (>60 ml/min/1.73 sqM); Potassium 3.9 mmol/L (3.5-5.1); Sodium 139 mmol/L (137-145); Total Bilirubin 0.5 mg/dL (0.2-1.3); Total Protein 6.8 g/dL (6.3-8.2)
[2017-02-10 00:07] LABS: INR 1.1 (<1.1); Partial Thromboplastin Time 25.1 sec (22.0-30.0); Prothrombin Time 10.9 sec (9.0-12.0)
[2017-02-10 00:28] LABS: Creatine Kinase MB 2.2 ng/mL (0.0-2.4)
[2017-02-10 00:29] LABS: Troponin I 0.066 ng/mL (0.000-0.034)
[2017-02-10] MEDS ORDERED: NITROGLYCERIN SL TABS 0.4 MG TAB SUBLINGUAL PRN ×3 (01:42→12:42)
[2017-02-10] MEDS ORDERED: ENOXAPARIN 100 MG/ML SYRINGE SQ STA (01:54)
--- NOTE | 2017-02-10 01:57 | XR ---
EXAM: XR Chest, 1 View CLINICAL HISTORY: Reason: chest pain TECHNIQUE: Frontal view of the chest. COMPARISON: Chest radiograph on 01/24/2017 FINDINGS: Lungs/pleura: Left greater than right bibasilar opacities likely represent atelectasis versus scarring. No pleural effusion or pneumothorax. Heart/mediastinum: Stable mild enlargement of the cardiac silhouette. Soft tissues: Unremarkable. Bones: No acute fracture. Degenerative changes of the shoulders. IMPRESSION: Left greater than right bibasilar atelectasis versus scarring. No other acute abnormality.
--- NOTE | 2017-02-10 01:58 | ED ---
Chest Pain HPI - General Chief Complaint: Chest Pain Stated Complaint: Chest Pressure-Post Heart Attack 2 wks ago Time Seen by Provider: 02/09/17 23:45 Source: patient Mode of arrival: wheelchair Limitations: no limitations - History of Present Illness Initial Comments: This patient is a 66-year-old man who presents to be evaluated for substernal chest pain that developed about 3 hours ago after he had eaten some [place] food. The patient states it was a gassy or pressure feeling like he had to belch but could not. He also says it was somewhat similar to pains that brought him here for recent admission. The patient related that he had heart catheterization but was not a good candidate to have bypass. Patient also had some nausea and was feeling a little short of breath. Symptoms have resolved since she arrived here was placed on oxygen. MD Complaint: chest pain Onset/Timin -: hour(s) Onset: during rest Pain Location: substernal Pain Radiation: none Severity: moderate Quality: heaviness Consistency: now resolved Improves With: nothing Worsens With: nothing Anginal Symptoms: nausea, dyspnea Treatments Prior to Arrival: oxygen - Related Data Home Medications Medication Instructions Recorded Confirmed Carboxymethylcellulose Sodium 1 drop BOTH EYES TID PRN 01/24/17 02/09/17 [Refresh Tears] Insulin Aspart [NovoLOG] See Protocol SQ AC-TID 01/24/17 02/09/17 Insulin Glargine [Lantus] 40 unit SQ BID 01/24/17 02/09/17 Lisinopril [Zestril] 20 mg PO DAILY 01/24/17 02/09/17 Metoprolol Tartrate [Lopressor] 50 mg PO BID 01/24/17 02/09/17 Previous Rx's Medication Instructions Recorded Aspirin EC [Ecotrin Low Dose] 81 mg PO DAILY #30 tablet. 01/26/17 Atorvastatin [Lipitor] 40 mg PO DAILY #30 tab 01/26/17 Clopidogrel [Plavix] 75 mg PO DAILY #30 tab 01/26/17 Isosorbide Mononitrate ER [Imdur] 30 mg PO DAILY #30 tab 01/26/17 Nitroglycerin Sl Tabs [Nitrostat] 0.4 mg SUBLINGUAL Q5M PRN #25 tab 01/26/17 metFORMIN HCL [Metformin HCl] 1,000 mg PO BID #0 01/26/17 Allergies Allergy/AdvReac Type Severity Reaction Status Date / Time No Known Allergies Allergy Verified 02/09/17 23:47 Review of Systems ROS Statement: Those systems with pertinent positive or pertinent negative responses have been documented in the HPI. ROS Other: All systems not noted in ROS Statement are negative. Constitutional: Denies: fever, chills Respiratory: Reports: as per HPI, dyspnea. Denies: cough Cardiovascular: Reports: chest pain. Denies: palpitations, orthopnea, edema Gastrointestinal: Reports: nausea. Denies: abdominal pain, vomiting, melena, hematochezia Genitourinary: Denies: dysuria, hematuria Musculoskeletal: Denies: back pain Skin: Denies: rash Neurological: Denies: headache, weakness, numbness Psychiatric: Reports: anxiety EKG Findings - EKG Comments: EKG Findings:: Low voltage QRS complexes - EKG Results: EKG: interpreted by MARIANO, sinus rhythm (Right proximal 92 bpm) - Blocks, [place], Hypertrophy, ST Abn: AV and intraventricular conduction: 1 AV block, right bundle branch block (fixed /intermittent, complete/incomplete) (Incomplete) QRS axis and voltage: left axis deviation (-30 to -90) Past Medical History Past Medical History: Coronary Artery Disease (CAD), Diabetes Mellitus, Hyperlipidemia, Hypertension, Osteoarthritis (OA) Additional Past Medical History / Comment(s): IDDM type II History of Any Multi-Drug Resistant Organisms: None Reported Past Surgical History: Heart Catheterization With Stent, Hernia Repair Additional Past Surgical History / Comment(s): 1999 PCI with stents x3 per pt, R foot's 2nd toe amp due to bone infection, R inguinal hernia repair as child, 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 Past Anesthesia/Blood Transfusion Reactions: No Reported Reaction Date of Last Stent Placement:: 1999 Past Psychological History: No Psychological Hx Reported Smoking Status: Former smoker Past Alcohol Use History: Occasional Past Drug Use History: None Reported - Past Family History Father Family Medical History: Myocardial Infarction ([place]) Additional Family Medical History / Comment(s): Father of a [place] at the age of 55yrs. Mother Family Medical History: Diabetes Mellitus Additional Family Medical History / Comment(s): Mother of complications of diabetes at the age of 56yrs. General Exam Limitations: no limitations General appearance: alert, in no apparent distress, obese Head exam: Present: atraumatic, normocephalic Eye exam: Present: normal appearance ENT exam: Present: mucous membranes dry Neck exam: Present: normal inspection Respiratory exam: Present: normal lung sounds bilaterally. Absent: respiratory distress, wheezes, rales, rhonchi Cardiovascular Exam: Present: regular rate, normal rhythm, systolic murmur. Absent: diastolic murmur, rubs, gallop GI/Abdominal exam: Present: soft. Absent: distended, tenderness, guarding, rebound, rigid Extremities exam: Present: normal inspection, normal capillary refill. Absent: pedal edema, calf tenderness Back exam: Present: normal inspection. Absent: CVA tenderness (R), CVA tenderness (L) Neurological exam: Present: alert Skin exam: Present: warm, dry, intact, normal color. Absent: rash Course Vital Signs 02/09/17 02/10/17 02/10/17 23:34 01:26 02:20 Temperature 97 F L Pulse Rate 88 84 68 Respiratory 20 20 16 Rate Blood Pressure 175/83 151/82 138/62 O2 Sat by Pulse 98 95 98 Oximetry Disposition Clinical Impression: Chest pain, Non-ST elevation myocardial infarction (NSTEMI) Disposition: ADMITTED IP TO THIS HOSP Condition: Poor
[2017-02-10 03:41] VITALS: BMI 32.5
[2017-02-10] MEDS: SODIUM CHLORIDE 0.9% 1,000 ML IV SCH (06:26)
[2017-02-10 07:49] LABS: Creatine Kinase MB 20.6 ng/mL (0.0-2.4); Troponin I 5.95 ng/mL (0.000-0.034)
--- NOTE | 2017-02-10 08:09 | P.CRDCN ---
History of Present Illness Consult date: 02/10/17 Requesting physician: Jb Palmer Consult reason: chest pain Chief complaint: Chest pain History of present illness: This is a pleasant 66-year-old gentleman with history of diabetes, hypertension, hyperlipidemia, CAD with prior stent placement, who was recently in the hospital approximately 2 weeks ago with a non-Q-wave myocardial infarction. He underwent a cardiac catheterization by Dr. Sal at that time and patient was found to have three-vessel coronary artery disease with a CRM SOLUTION ARCHITECT of the RCA with [id number] collaterals, severe disease involving the LAD including in-stent restenosis and multiple segmental areas of stenosis, 60-70% stenosis of the circumflex in the obtuse marginal branch where the stent is patent but in the very distal portion there was a new 80-90% stenosis. Films were reviewed by Dr. Gunderson who felt that his coronaries were high risk for angioplasty. Subsequent to that a surgical consultation was requested and the recommendation suggested that the patient's current anatomy was not favorable for surgery, they recommended PTCA and stenting of the LAD. Patient was discharged home on maximal medical therapy. He presents to the hospital on this occasion with an episode of chest pressure and heaviness which started last evening. Patient states he took his insulin and his medications to see if the symptoms would subside, he then states he had an episode of vomiting. Pressure persisted and he came to the emergency room for further evaluation. EKG on arrival here showed a normal sinus rhythm with incomplete right bundle branch block pattern and nonspecific ST-T wave changes. Chest x-ray revealed left greater than right bibasilar atelectasis. CBC normal, d-dimer 0.43, potassium 3.9, BUN 11, creatinine 0.9. Initial troponin on presentation here 0.066, subsequent troponin 5.9. Echocardiogram with Doppler study which was performed 2 weeks ago revealed an ejection fraction of 50-55%. Patient was initiated here on Lovenox as well as aspirin. At the time of my examination this morning, patient is currently chest pain-free. 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 Past Anesthesia/Blood Transfusion Reactions: No Reported Reaction Date of Last Stent Placement:: 1999 Past Psychological History: No Psychological Hx Reported Additional Psychological History / Comment(s): Pt resides with his spouse. He is independent. He is a [place] . He served in [employer] from [id number]. Smoking Status: Former smoker Past Alcohol Use History: Occasional Past Drug Use History: None Reported - Past Family History Father Family Medical History: Myocardial Infarction (FL) Additional Family Medical History / Comment(s): Father of a [place] at the age of 55yrs. Mother Family Medical History: Diabetes Mellitus Additional Family Medical History / Comment(s): Mother of complications of diabetes at the age of 56yrs. Medications and Allergies Home Medications Medication Instructions Recorded Confirmed Type Carboxymethylcellulose Sodium 1 drop BOTH EYES TID PRN 01/24/17 02/09/17 History [Refresh Tears] Insulin Aspart [NovoLOG] See Protocol SQ AC-TID 01/24/17 02/09/17 History Insulin Glargine [Lantus] 40 unit SQ BID 01/24/17 02/09/17 History Lisinopril [Zestril] 20 mg PO DAILY 01/24/17 02/09/17 History Metoprolol Tartrate [Lopressor] 50 mg PO BID 01/24/17 02/09/17 History Allergies Allergy/AdvReac Type Severity Reaction Status Date / Time No Known Allergies Allergy Verified 02/09/17 23:47 Physical Exam Vitals: Vital Signs Temp Pulse Pulse Resp BP BP Pulse Ox 02/10/17 03:51 97.8 F 83 18 97/38 95 02/10/17 02:41 97.8 F 83 17 97/38 95 02/10/17 02:20 68 16 138/62 98 02/10/17 01:26 84 20 151/82 95 02/09/17 23:34 97 F L 88 20 175/83 98 Intake and Output 02/09/17 02/10/17 02/10/17 22:59 06:59 14:59 Output Total 400 Balance -400 Output: Urine 400 Other: Voiding Method Toilet Weight 103.1 kg PHYSICAL EXAMINATION: HEENT: Head is atraumatic, normocephalic. Pupils equal, round. Neck is supple. There is no elevated jugular venous pressure. HEART EXAMINATION: Heart S1, S2 normal. No murmur or gallop heard. CHEST EXAMINATION: Lungs are clear to auscultation and precussion. No chest wall tenderness is noted on palpation or with deep breathing. ABDOMEN: Soft, obese, nontender. Bowel sounds are heard. No organomegaly noted. EXTREMITIES: 2+ peripheral pulses with no evidence of peripheral edema and no calf tenderness noted. NEUROLOGIC patient is awake, alert and oriented -3. . Results 02/10/17 06:34 02/09/17 23:42 Cardiac Enzymes 02/09/17 02/09/17 02/10/17 Range/Units 23:42 23:42 06:34 AST 25 (17-59) U/L CK-MB (CK-2) 2.2 20.6 H* (0.0-2.4) ng/mL Troponin I 0.066 H* 5.950 H* (0.000-0.034) ng/mL Coagulation 02/09/17 Range/Units 23:42 PT 10.9 (9.0-12.0) sec APTT 25.1 (22.0-30.0) sec CBC 02/09/17 Range/Units 23:42 WBC 9.0 (3.8-10.6) k/uL RBC 4.58 (4.30-5.90) m/uL Hgb 13.9 (13.0-17.5) gm/dL Hct 43.1 (39.0-53.0) % Plt Count 184 (150-450) k/uL Comprehensive Metabolic Panel 02/09/17 Range/Units 23:42 Sodium 139 (137-145) mmol/L Potassium 3.9 (3.5-5.1) mmol/L Chloride 103 (98-107) mmol/L Carbon Dioxide 23 (22-30) mmol/L BUN 11 (9-20) mg/dL Creatinine 0.90 (0.66-1.25) mg/dL Glucose 290 H (74-99) mg/dL Calcium 9.5 (8.4-10.2) mg/dL AST 25 (17-59) U/L ALT 37 (21-72) U/L Alkaline Phosphatase 125 (38-126) U/L Total Protein 6.8 (6.3-8.2) g/dL Albumin 4.3 (3.5-5.0) g/dL Current Medications Generic Name Dose Route Start Last Admin Trade Name Tobiasq PRN Reason Stop Dose Admin Aspirin 325 mg 02/11/17 09:00 Aspirin PO DAILY [facility] Enoxaparin Sodium 100 mg 02/10/17 09:00 Lovenox SQ BID [facility] Sodium Chloride 1,000 mls @ 20 mls/hr 02/10/17 01:45 02/10/17 06:26 Saline 0.9% IV Not Given .Q24H [facility] Nitroglycerin 0.4 mg 02/10/17 01:42 Nitrostat SUBLINGUAL Q5M PRN Chest Pain Intake and Output 02/09/17 02/10/17 02/10/17 22:59 06:59 14:59 Output Total 400 Balance -400 Output: Urine 400 Other: Voiding Method Toilet Weight 103.1 kg 02/09/17 23:42 02/09/17 23:42 EKG Interpretations (text) EKG shows normal sinus rhythm with an incomplete right bundle branch block pattern and nonspecific ST-T wave changes Assessment and Plan Plan: Assessment and plan #1 non-ST elevation myocardial infarction #2 recent admission to the hospital 2 weeks ago with a non-ST elevation [place]. Cardiac catheterization was performed at that time which revealed three-vessel coronary artery disease with a CRM SOLUTION ARCHITECT of the RCA, severe disease involving the LAD with evidence of in-stent restenosis and multiple segmental areas of stenosis, 60-70% circumflex stenosis in the OM, as well as an 80-90% distal stenosis. Maximal medical therapy advised at that time. #3 diabetes #4 hypertension #5 hyperlipidemia Plan We'll discontinue the Lovenox and initiate IV heparin. Continue aspirin. Resume statin, beta esthela, MARJORIE inhibitor, and Plavix. We will repeat an echocardiogram with Doppler study to see if there is any new wall motion abnormalities. Patient's case was discussed with Dr. Gunderson who will proceed with angioplasty today, patient was explained that it is a high risk situation, the risks and benefits were explained in detail. DNP note has been reviewed, I agree with a documented findings and plan of care. Patient was seen and examined.
[2017-02-10] MEDS ORDERED: HEPARIN SODIUM,PORCINE 5,000 UNIT/ML 1 ML VIAL IV PRN (08:10)
[2017-02-10] MEDS ORDERED: HEPARIN SODIUM,PORCINE 5,000 UNIT/ML 1 ML VIAL IV ONE (08:10)
[2017-02-10] MEDS ORDERED: HEPARIN SODIUM,PORCINE/D5W PMX 25,000 UNIT in DEXTROSE/WATER 1 500ML.BAG IV SCH (08:30)
[2017-02-10 08:44] LABS: Basophils # (A) 0.1 k/uL (0-0.2); Basophils % (A) 1 %; CH 30.3; CHCM 32.8; Eosinophils # (A) 0.4 k/uL (0-0.7); Eosinophils % (A) 4 %; HCT 40.7 % (39.0-53.0); HDW 2.95; HGB 13.2 gm/dL (13.0-17.5); Luc % (Auto) 2; Lymphocytes # (A) 1.5 k/uL (1.0-4.8); Lymphocytes % (A) 17 %; MCH 30.2 pg (25.0-35.0); MCHC 32.5 g/dL (31.0-37.0); Mean Platelet Volume 8.1; Monocytes # (A) 0.6 k/uL (0-1.0); Monocytes % (A) 6 %; Neutrophils # (A) 6.2 k/uL (1.3-7.7); Neutrophils % (A) 69 %; RBC 4.38 m/uL (4.30-5.90); RDW 13.5 % (11.5-15.5); WBC 8.9 k/uL (3.8-10.6); WBC (Perox) 9.05
[2017-02-10 08:54] LABS: INR 1.1 (<1.1); Partial Thromboplastin Time 30.3 sec (22.0-30.0); Prothrombin Time 11.3 sec (9.0-12.0)
[2017-02-10] MEDS: METOPROLOL TARTRATE 50 MG TAB PO SCH ×2 (08:56→20:51)
[2017-02-10] MEDS: ATORVASTATIN 40 MG TAB PO SCH (08:56)
[2017-02-10] MEDS ORDERED: CLOPIDOGREL 75 MG TAB PO SCH (09:00)
[2017-02-10] MEDS ORDERED: ENOXAPARIN 100 MG/ML SYRINGE SQ SCH (09:00)
[2017-02-10] MEDS ORDERED: SODIUM CHLORIDE 0.9% 1,000 ML in EMPTY BAG 1 BAG IV ONE (09:21)
[2017-02-10] MEDS ORDERED: ALPRAZolam 0.5 MG TAB PO PRN (09:21)
[2017-02-10] MEDS ORDERED: ASPIRIN 325 MG TAB PO STA (09:21)
[2017-02-10] MEDS ORDERED: ALPRAZolam 0.25 MG TAB PO PRN (09:21)
[2017-02-10] MEDS ORDERED: ATORVASTATIN 40 MG TAB PO STA (09:21)
[2017-02-10] MEDS ORDERED: LIDOCAINE 2% INJ 20 MG/ML (20 ML MDV) ONE (11:04)
[2017-02-10] MEDS: LISINOPRIL 20 MG TAB PO SCH (11:12)
[2017-02-10] MEDS ORDERED: fentaNYL (PF) 50 MCG/ML 2 ML AMP ONE (11:28)
[2017-02-10] MEDS ORDERED: IV FLUID CONTINUATION 1,000 ML IV ONE (11:37)
[2017-02-10] MEDS ORDERED: fentaNYL (PF) 50 MCG/ML 2 ML AMP IV ONE (11:40)
[2017-02-10] MEDS ORDERED: LIDOCAINE 2% INJ 20 MG/ML SQ ONE ×2 (11:42)
[2017-02-10] MEDS ORDERED: BIVALIRUDIN BOLUS 250 MG/50 ML IV ONE (11:45)
[2017-02-10] MEDS ORDERED: BIVALIRUDIN 250 MG in SODIUM CHLORIDE 0.9% 50 ML IV ONE (11:45)
[2017-02-10] MEDS ORDERED: NITROGLYCERIN 1000MCG/10ML SYRINGE INTRACORON ONE (11:56)
[2017-02-10] MEDS ORDERED: IOHEXOL 350 MG/ML 125ML BOTTLE INJ ONE (12:31)
--- NOTE | 2017-02-10 12:37 | ECHOF ---
Referral Reason:NSTEMI MEASUREMENTS -------- HEIGHT: 152.4 cm WEIGHT: 103.0 kg BP: 140/60 IVSd: 1.3 cm (0.6 - 1.1) LVIDd: 5.2 cm (3.9 - 5.3) LVPWd: 1.3 cm (0.6 - 1.1) LVIDs: 3.7 cm LA Diam: 5.0 cm (2.7 - 3.8) LAESV Index (A-L): 54.22 ml/m Ao Diam: 3.9 cm (2.0 - 3.7) LA Diam: 5.6 cm (2.7 - 3.8) AV Cusp: 1.4 cm (1.5 - 2.6) EPSS: 0.6 cm MV E Hermilo: 0.69 m/s MV DecT: 281 ms MV A Hermilo: 1.03 m/s MV E/A Ratio: 0.67 RAP: 5.00 mmHg RVSP: 13.79 mmHg MV EF SLOPE: 87.39 mm/s (70 - 150) MV EXCURSION: 19.82 mm (> 18.000) FINDINGS -------- Sinus rhythm. This was a techncally difficult study with suboptimal views, , Definity utilized for enhancement of images. There is mild concentric left ventricular hypertrophy. Overall left ventricular systolic function is mild-moderately impaired with, an EF between 40 - 45 %. Anterseptal Hypokinesis [place] Hypokinesis. Distal Septal Hypokinesis. The right ventricle is normal in size. LA is severely dilated >40 ml/m2 The right atrial size is normal. 1.5MG OF DEFINITY UTLIZED: 2 OR MORE WALL SEGMENTS NOT VISUALIZED. There is mild aortic valve sclerosis. There is no evidence of aortic regurgitation. Mild mitral annular calcification present. Mild mitral regurgitation is present. Mild tricuspid regurgitation present. There is no evidence of pulmonary hypertension. The right ventricular systolic pressure, as measured by Doppler, is 13.79mmHg. The pulmonic valve was not well visualized. The aortic root size is normal. There is no pericardial effusion. CONCLUSIONS -------- 1. This was a techncally difficult study with suboptimal views, , Definity utilized for enhancement of images. 2. Mild mitral annular calcification present. 3. Mild mitral regurgitation is present. 4. Mild tricuspid regurgitation present. 5. There is no evidence of pulmonary hypertension. 6. The right ventricular systolic pressure, as measured by Doppler, is 13.79mmHg. 7. The pulmonic valve was not well visualized. 8. There is mild concentric left ventricular hypertrophy. 9. Overall left ventricular systolic function is mild-moderately impaired with, an EF between 40 - 45 %. 10. Anterseptal Hypokinesis 11. [place] Hypokinesis. 12. Distal Septal Hypokinesis. 13. LA is severely dilated >40 ml/m2 14. 1.5MG OF DEFINITY UTLIZED: 2 OR MORE WALL SEGMENTS NOT VISUALIZED. 15. There is mild aortic valve sclerosis. DIET CLERK: Halina Prather RDCS
[2017-02-10] MEDS ORDERED: ZOLPIDEM 5 MG TAB PO PRN (12:42)
[2017-02-10] MEDS ORDERED: MAG HYDROX/AL HYDROX/SIMETH 30 ML CUP PO PRN (12:42)
[2017-02-10] MEDS ORDERED: ATROPINE SULFATE 0.1 MG/ML 10ML SYRINGE IV PRN (12:42)
[2017-02-10] MEDS ORDERED: RX INFO: IV CONTRAST WAS GIVEN 1 EACH MISC MISCELLANE PRN (12:42)
[2017-02-10] MEDS ORDERED: SODIUM CHLORIDE 0.9% 1,000 ML IV SCH (12:45)
[2017-02-10] MEDS ORDERED: Magnesium Replacement Protocol 1 EACH MISC MISCELLANE PRN (13:50)
[2017-02-10] MEDS: ISOSORBIDE MONONITRATE ER 30 MG TAB.ER.24H PO SCH (13:56)
[2017-02-10 15:18] LABS: Creatine Kinase MB 15.5 ng/mL (0.0-2.4); Troponin I 6.43 ng/mL (0.000-0.034)
[2017-02-10] MEDS: INSULIN LISPRO (humaLOG) 300 UNIT/3 ML VIAL SQ SCH ×2 (17:14→20:52)
[2017-02-10] MEDS: MAGNESIUM SULFATE-D5W PMX 1 GM in DEXTROSE/WATER 1 100ML.BAG IVPB SCH ×2 (17:15→20:51)
[2017-02-10 17:23] LABS: Glucose,Whole Blood 165 mg/dL (75-99)
--- NOTE | 2017-02-10 19:49 | HP ---
DATE OF ADMISSION: 02/10/2017 CHIEF COMPLAINT: Chest pain. HISTORY OF PRESENT ILLNESS: Mr. Brantley is a 66-year-old male with known history of coronary artery disease with prior stent placement and recent cardiac catheterization with triple vessel disease and distal severe coronary artery disease and hypertension, diabetes mellitus , came to the hospital with complaints of chest pressure and heaviness which started yesterday evening and the patient did take nitroglycerin which did not subside his pain. Patient also had an episode of vomiting. Came to the emergency room for further evaluation. EKG showed normal sinus rhythm and his initial troponin level at 0.066 and subsequently went up to 5.9. The patient was initiated on Lovenox and changed to heparin IV. Cardiology has seen the patient and recommended cardiac catheterization and was taken to labor relations consultant and the patient underwent coronary artery stenting today. Currently patient is chest pain free. REVIEW OF SYSTEMS: CONSTITUTIONAL: No fever. No chills. RESPIRATORY: No cough or sputum production. CARDIOVASCULAR: No chest pain or shortness of breath. ABDOMEN: No nausea or vomiting, abdominal pain. GENITOURINARY: Negative. ENDOCRINE: Negative. PSYCHIATRIC: Negative. SKIN: Negative. All other 14 point review of systems negative except as above. PAST MEDICAL HISTORY: Coronary artery disease with history of stent placement several years ago and recent cardiac catheterization and triple vessel disease. Diabetes mellitus and hypertension. Hyperlipidemia. Osteoarthritis. Diabetes type 2. PAST SURGICAL HISTORY: Cardiac catheterization and stent placement. Hernia repair, history of PCI in 1999 with stents times three. 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 Right inguinal hernia repair ( ), right hand distal pinky amputation due to industrial accident. SOCIAL HISTORY: The patient lives with his spouse. He is independent. He is a [place] . He served in [employer] from 1968 to 1970. Patient is a former smoker. Occasional alcohol use. Denied any drugs or IVDU. FAMILY HISTORY: Father had MD. of MD at age of 55 years. Mother had diabetes mellitus. Mother of complications of diabetes at age 56 years. Home medications: 1. Refresh tears. 2. NovoLog. 3. Lantus. 4. Zestril. 5. Metoprolol. ALLERGIES: No known drug allergies. PHYSICAL EXAMINATION: A 66-year-old male lying in the bed, awake, alert and oriented times three. Appears to be in no apparent distress. VITALS: Blood pressure is 119/71, pulse 81, respirations 18, temperature afebrile, pulse ox 95% on room air. HEENT: Atraumatic, normocephalic. Neck is supple. No JVD. CVS: S1, S2 heard. No murmurs, no rub. LUNGS: Bilateral air entry is present. No wheezing. No crackles. ABDOMEN: Soft, nontender. Bowel sounds present. CENTRAL NERVOUS SYSTEM: Awake, alert, oriented x3. No focal deficit. EXTREMITIES: No edema. Pulses palpable bilaterally. No clubbing or cyanosis. PSYCHIATRIC: Cooperative. LABORATORY DATA: WBC 8.9, hemoglobin 13.2, platelets 166, INR 1.1. Sodium 139, potassium 3.9, chloride 103, bicarbonate is 23, BUN 11, creatinine 0.9, blood sugar is 290, magnesium 1.5. Initial troponin 0.066 and 5.950 and 6.430. Albumin 4.3. Chest x-ray left greater than right bibasilar atelectasis versus scarring. No other acute abnormality. EKG normal sinus rhythm. 2D echo showed ejection fraction 40-45%. IMPRESSION: 1. Acute non-ST elevated myocardial infarction, status post cardiac catheterization and stent placement. 2. Recent cardiac catheterization at and found to have triple vessel disease. 3. History of coronary artery disease, status post PCI in 1999. 4. Diabetes type 2 insulin-dependent. 5. Hyperlipidemia. 6. Hypertension. 7. History of smoking. 8. Degenerative joint disease. DISCUSSION AND PLAN: Patient is 60-year-old man with a known history of triple vessel coronary artery disease admitted to the hospital with complaints of chest pain and elevated troponin levels. The patient underwent cardiac catheterization and stent placement. The patient will be otherwise, patient will be continued on aspirin and Lipitor, Effient and Zestril as well as Imdur. Cardiology is following the patient. The patient is currently chest pain free. We will continue the current management and further recommendations based in clinical course.
[2017-02-10 20:20] LABS: Hemoglobin A1C 7.8 % (4.2-6.1)
[2017-02-10 20:49] LABS: Glucose,Whole Blood 210 mg/dL (75-99)
[2017-02-10] MEDS: INSULIN GLARGINE 100 UNIT/ML 10 ML VIAL SQ SCH (22:44)
[2017-02-11] MEDS: SODIUM CHLORIDE 0.9% 1,000 ML IV SCH (01:47)
[2017-02-11 05:57] LABS: Glucose,Whole Blood 164 mg/dL (75-99)
[2017-02-11 07:10] LABS: Anion Gap 11 mmol/L; Blood Urea Nitrogen 9 mg/dL (9-20); Carbon Dioxide 23 mmol/L (22-30); Chloride 105 mmol/L (98-107); Cholesterol 128 mg/dL (<200); Glucose 171 mg/dL (74-99); HDL Cholesterol 32 mg/dL (40-60); Magnesium 1.6 mg/dL (1.6-2.3); Non-African American GFR(MDRD) >60 (>60 ml/min/1.73 sqM); Potassium 4.3 mmol/L (3.5-5.1); Sodium 139 mmol/L (137-145); Triglycerides 163 mg/dL (<150)
[2017-02-11] MEDS: INSULIN LISPRO (humaLOG) 300 UNIT/3 ML VIAL SQ SCH ×4 (08:39→21:21)
[2017-02-11] MEDS: METOPROLOL TARTRATE 50 MG TAB PO SCH ×2 (08:40→21:20)
[2017-02-11] MEDS: ASPIRIN 81 MG CHEW PO SCH (08:40)
[2017-02-11] MEDS: LISINOPRIL 20 MG TAB PO SCH (08:40)
[2017-02-11] MEDS: ATORVASTATIN 40 MG TAB PO SCH (08:41)
[2017-02-11] MEDS: ISOSORBIDE MONONITRATE ER 30 MG TAB.ER.24H PO SCH (08:41)
[2017-02-11] MEDS: PRASUGREL 10 MG TAB PO SCH (08:41)
[2017-02-11] MEDS: INSULIN GLARGINE 100 UNIT/ML 10 ML VIAL SQ SCH ×2 (08:47→21:25)
[2017-02-11] MEDS ORDERED: ASPIRIN 325 MG TAB PO SCH (09:00)
--- NOTE | 2017-02-11 09:17 | PTCA ---
DATE OF SERVICE: Mr. Brantley is a 66-year-old male with a known history of coronary artery disease, history of percutaneous revascularization, who presented with symptoms of chest discomfort earlier this month, underwent cardiac catheterization by Dr. Amaro, was found to have diffuse disease in the left anterior descending artery and the distal left circumflex with a chronically occluded right coronary artery. Patient was not a good candidate for surgical intervention and because of his long segment of disease recommendation was made regarding maximizing his medical therapy and depending on his progress, further recommendation will be made. The patient was readmitted to the hospital with symptoms of chest discomfort and he had mild elevation of his troponin. In view of that, recommendation was made regarding angioplasty and stenting. The procedure as well as risks and complications were discussed with the patient who is in full understanding and agreement. PROCEDURE: Patient was brought to [facility] in fasting semisedated state. After receiving, fentanyl and Benadryl and achieving moderate conscious sedated state, he was draped and prepped usual fashion. Using Xylocaine anesthesia and Seldinger technique, a 6 Nepalese sheath was introduced in the right femoral artery. Left coronary angiography was performed using 6 Nepalese, FR4 guiding catheter. After cannulating the left main, a 0.014 balanced medium weight J-wire was advanced across the lesion and positioned distally. Then a 2.25 x 15 mm trek balloon was advanced and multiple inflation in maximum of 10 atmosphere was done. Following that, the balloon was removed and a 2.25 x 18 mm Xience Alpine stent was deployed distally and postdilated at 14 atmospheres. After removing the balloon, a 2.5 x 23 mm Xience Alpine stent was deployed proximal to the first one and postdilated to 16 atmospheres and following that, a 3.0 x 38 mm Xience Alpine stent was deployed proximal to that, one postdilated to 16 atmospheres and following that, a 3.25 x 12 mm Xience Alpine stent was deployed postdilated to 16 atmospheres. Following that, a 3.25 x 15 mm NC trek balloon was advanced, and inflations up to 16 atmospheres were done. After the last inflation, after appropriate wait, the balloon and guidewire were withdrawn back into the guiding catheter. Images were obtained, repeated. Those images reveal stable successful stenting. At that point, the guiding catheter, the balloon and the guidewire were removed. The sheath was removed. Hemostasis was obtained with deployment of an Angio-Seal. There were no immediate complications. Patient is returned to his room in stable condition. Of note, the patient had no chest discomfort and no significant EKG changes. He received Angiomax per protocol. RESULT: Successful stenting of a long segment of the proximal, mid and distal left anterior descending with reduction in stenosis from 99% to less than 5%. RECOMMENDATION: Patient will be continued on aspirin, Effient, beta esthela and statin. The importance of dual antiplatelet treatment was discussed with the patient and his family who was in full understanding and agreement.
--- NOTE | 2017-02-11 09:19 | LTR ---
February 10, 2017 RE: Fercho Drew Jodi Dear Dr. Torres: I had the pleasure of performing coronary angioplasty and stenting on Mr. Brantley at [facility] on the 10 of February and full copy of procedure note will be forwarded to you. In brief, he underwent successful stenting of the long segment of the proximal and mid left anterior descending using drug-eluting stents. I am hopeful that this procedure will stabilize his status. Thank you again for allowing me to participate in his care. Please feel free to call for any questions. Sincerely, BAYLEE MORRIS MD
[2017-02-11 12:16] LABS: Glucose,Whole Blood 215 mg/dL (75-99)
--- NOTE | 2017-02-11 12:19 | P.PN ---
Subjective Principal diagnosis: Non-STEMI This is a pleasant 66-year-old gentleman with history of diabetes, hypertension, hyperlipidemia, CAD with prior stent placement, who was recently in the hospital approximately 2 weeks ago with a non-Q-wave myocardial infarction. He underwent a cardiac catheterization by Dr. Sal at that time and patient was found to have three-vessel coronary artery disease with a POLISHER AND SANDER of the RCA with [id number] collaterals, severe disease involving the LAD including in-stent restenosis and multiple segmental areas of stenosis, 60-70% stenosis of the circumflex in the obtuse marginal branch where the stent is patent but in the very distal portion there was a new 80-90% stenosis. Films were reviewed by Dr. Gunderson who felt that his coronaries were high risk for angioplasty. Subsequent to that a surgical consultation was requested and the recommendation suggested that the patient's current anatomy was not favorable for surgery, they recommended PTCA and stenting of the LAD. Patient was discharged home on maximal medical therapy. He presented to the hospital again with a non-ST elevation myocardial infarction. He was taken to the cardiac catheterization lab yesterday by Dr. Gunderson where he underwent multiple stent placements to the LAD. Patient was seen and examined this morning, denies any chest pain or difficulty in breathing. He has been up ambulating without any difficulty. EKG shows normal sinus rhythm with no new changes from post-PCI. Potassium 4.3, BUN 9, creatinine 0.7. At pressure 116/70 with a heart rate in the 70s. Objective - Vital Signs Vital signs: Vital Signs Temp 98.7 F 02/11/17 08:20 Pulse 79 02/11/17 08:20 Resp 18 02/11/17 08:20 BP 116/60 02/11/17 08:20 Pulse Ox 95 02/11/17 08:20 Intake & Output 02/10/17 02/11/17 02/11/17 18:59 06:59 18:59 Intake Total 1534.4 1200 Output Total 825 2300 Balance 709.4 -2300 1200 Weight 102.3 kg Intake: IV 167.4 Intake, IV Titration 450 1200 Amount IV Fluid Continuation 1, 400 000 ml As IV .[facility] Rx#:[id number] Magnesium Sulfate-D5w Pmx 50 200 1 gm In Dextrose/Water 1 100ml.bag @ 100 mls/hr IVPB Q1H [facility] Rx#: [id number] Sodium Chloride 0.9% 1, 1000 000 ml @ 100 mls/hr IV . Q10H [facility] Rx#:[id number] Oral 917 Output: Urine 825 2300 Other: Voiding Method Toilet - Exam PHYSICAL EXAMINATION: HEENT: Head is atraumatic, normocephalic. Pupils equal, round. Neck is supple. There is no elevated jugular venous pressure. HEART EXAMINATION: Heart S1, S2 normal. No murmur or gallop heard. CHEST EXAMINATION: Lungs are clear to auscultation and precussion. No chest wall tenderness is noted on palpation or with deep breathing. ABDOMEN: Soft, obese, nontender. Bowel sounds are heard. No organomegaly noted. Right groin soft, no evidence of any hematoma. EXTREMITIES: 2+ peripheral pulses with no evidence of peripheral edema and no calf tenderness noted. NEUROLOGIC patient is awake, alert and oriented -3. . - Labs CBC & Chem 7: 02/10/17 06:34 02/11/17 06:20 Labs: Abnormal Lab Results - Last 24 Hours (Table) 02/10/17 02/10/17 02/10/17 Range/Units 06:34 14:20 16:54 Glucose (74-99) mg/dL POC Glucose (mg/dL) 165 H (75-99) mg/dL Hemoglobin A1c 7.8 H (4.2-6.1) % Total Creatine Kinase 220 H (55-170) U/L CK-MB (CK-2) 15.5 H* (0.0-2.4) ng/mL Troponin I 6.430 H* (0.000-0.034) ng/mL Triglycerides (<150) mg/dL HDL Cholesterol (40-60) mg/dL 02/10/17 02/11/17 02/11/17 Range/Units 20:48 05:55 06:20 Glucose 171 H (74-99) mg/dL POC Glucose (mg/dL) 210 H 164 H (75-99) mg/dL Hemoglobin A1c (4.2-6.1) % Total Creatine Kinase (55-170) U/L CK-MB (CK-2) (0.0-2.4) ng/mL Troponin I (0.000-0.034) ng/mL Triglycerides 163 H (<150) mg/dL HDL Cholesterol 32 L (40-60) mg/dL 02/11/17 Range/Units 12:14 Glucose (74-99) mg/dL POC Glucose (mg/dL) 215 H (75-99) mg/dL Hemoglobin A1c (4.2-6.1) % Total Creatine Kinase (55-170) U/L CK-MB (CK-2) (0.0-2.4) ng/mL Troponin I (0.000-0.034) ng/mL Triglycerides (<150) mg/dL HDL Cholesterol (40-60) mg/dL Assessment and Plan Plan: Assessment and plan #1 non-ST elevation myocardial infarction, status post stenting of the LAD #2 recent admission to the hospital 2 weeks ago with a non-ST elevation [place]. Cardiac catheterization was performed at that time which revealed three-vessel coronary artery disease with a POLISHER AND SANDER of the RCA, severe disease involving the LAD with evidence of in-stent restenosis and multiple segmental areas of stenosis, 60-70% circumflex stenosis in the OM, as well as an 80-90% distal stenosis. Maximal medical therapy advised at that time. #3 diabetes #4 hypertension #5 hyperlipidemia Plan We will continue the patient on his current medications. He's been encouraged to be up ambulating today. Possible discharge home in the next 24 hours if stable. DNP note has been reviewed, I agree with a documented findings and plan of care. Patient was seen and examined.
[2017-02-11] MEDS: MAGNESIUM SULFATE-D5W PMX 1 GM in DEXTROSE/WATER 1 100ML.BAG IVPB SCH ×2 (13:32→15:31)
[2017-02-11 17:02] LABS: Glucose,Whole Blood 195 mg/dL (75-99)
[2017-02-11 21:20] LABS: Glucose,Whole Blood 147 mg/dL (75-99)
[2017-02-12 06:38] LABS: Glucose,Whole Blood 124 mg/dL (75-99)
[2017-02-12] MEDS: INSULIN LISPRO (humaLOG) 300 UNIT/3 ML VIAL SQ SCH ×2 (07:10→12:09)
[2017-02-12] MEDS: SODIUM CHLORIDE 0.9% 1,000 ML IV SCH (07:10)
[2017-02-12] MEDS: ATORVASTATIN 40 MG TAB PO SCH (08:43)
[2017-02-12] MEDS: METOPROLOL TARTRATE 50 MG TAB PO SCH (08:43)
[2017-02-12] MEDS: PRASUGREL 10 MG TAB PO SCH (08:43)
[2017-02-12] MEDS: ASPIRIN 81 MG CHEW PO SCH (08:43)
[2017-02-12] MEDS: LISINOPRIL 20 MG TAB PO SCH (08:43)
[2017-02-12] MEDS: ISOSORBIDE MONONITRATE ER 30 MG TAB.ER.24H PO SCH (08:43)
[2017-02-12] MEDS: INSULIN GLARGINE 100 UNIT/ML 10 ML VIAL SQ SCH (08:48)
[2017-02-12 09:33] VITALS: RESP 20
--- NOTE | 2017-02-12 10:31 | PN ---
Mr. Brantley is a 66 -year-old male with known history of coronary artery disease with prior stent placement and recent cardiac catheterization and found to have triple vessel disease as well as diabetes mellitus, admitted to the hospital with complaints of chest pressure and heaviness and was found to have non-ST elevated [place]. Patient underwent cardiac catheterization with stent placement. Currently the patient denied any complaints of chest pain. No acute overnight issues. Otherwise, patient is being ( ). Cardiology is on board. Anticipate discharge in the next 24 hours with more clinical improvement. CURRENT MEDICATIONS: Reviewed. REVIEW OF SYSTEMS: CONSTITUTIONAL: No fever or chills. RESPIRATORY: No cough or sputum production. CARDIOVASCULAR: No chest pain or shortness of breath. ABDOMINAL: No nausea or vomiting. : Neg. ENDOCRINE: Negative. All other 14 point review of systems negative except as above. PHYSICAL EXAMINATION: A 66-year-old man lying in bed comfortably, alert and oriented times three. Appears to be in no apparent distress. VITALS: Blood pressure is 126/64, pulse 85, respirations 18, temperature afebrile. Pulse ox 93% on room air. HEENT: Conjunctivae normal. NECK: Neck is supple. No JVD. CVS: S1, S2 heard. No murmurs, no gallop or rub. LUNGS: Bilateral air entry is present. No wheezing. No crackles. Nonlabored breathing. ABDOMEN: Soft, nontender. Bowel sounds present. BANK VAULT ATTENDANT: Awake and alert and oriented times 3. No focal deficit. EXTREMITIES: Pulses palpable bilaterally. No clubbing or cyanosis. PSYCHIATRIC: Cooperative. LABORATORY DATA: Sodium 139, potassium 4.3, chloride 105, bicarb is 23, BUN 9, creatinine 0.72. calcium 8.0, magnesium 1.6, triglycerides 163, total cholesterol 123, LDL ( ) blood sugar fairly controlled. IMPRESSION: 1. Acute non-ST lead myocardial infarction, status post cardiac catheterization and stent placement. 2. Recent cardiac catheterization and found to have triple-vessel history and severe coronary artery disease. 3. History of coronary artery disease, status post PCI in 1999. 4. Diabetes type 2 insulin-dependent. 5. Hypertension. 6. Hyperlipidemia. 7. History of smoking. 8. Degenerative joint disease. 9. Hypomagnesemia. DISCUSSION AND PLAN: The patient will be continued on current medications including aspirin, Lipitor and Effient as well as ( ) as well as metoprolol. We will continue to monitor. Anticipate discharge in the next 24 hours. Cardiology is on board.
[2017-02-12 11:55] LABS: Glucose,Whole Blood 144 mg/dL (75-99)
--- NOTE | 2017-02-12 15:22 | P.PN ---
Subjective Principal diagnosis: Non-STEMI This is a pleasant 66-year-old gentleman with history of diabetes, hypertension, hyperlipidemia, CAD with prior stent placement, who was recently in the hospital approximately 2 weeks ago with a non-Q-wave myocardial infarction. He underwent a cardiac catheterization by Dr. Sal at that time and patient was found to have three-vessel coronary artery disease with a WALLPAPER EMBOSSER HELPER of the RCA with [id number] collaterals, severe disease involving the LAD including in-stent restenosis and multiple segmental areas of stenosis, 60-70% stenosis of the circumflex in the obtuse marginal branch where the stent is patent but in the very distal portion there was a new 80-90% stenosis. Films were reviewed by Dr. Gunderson who felt that his coronaries were high risk for angioplasty. Subsequent to that a surgical consultation was requested and the recommendation suggested that the patient's current anatomy was not favorable for surgery, they recommended PTCA and stenting of the LAD. Patient was discharged home on maximal medical therapy. He presented to the hospital again with a non-ST elevation myocardial infarction. He was taken to the cardiac catheterization lab Dr. Gunderson where he underwent multiple stent placements to the LAD. Patient was seen and examined this morning, denies any chest pain or difficulty in breathing. He has been up ambulating without any difficulty. Blood pressure 104/60, heart rate in the 60s to 70s. Afebrile. Objective - Vital Signs Vital signs: Vital Signs Temp 98.1 F 02/12/17 11:38 Pulse 69 02/12/17 11:38 Resp 20 02/12/17 11:38 BP 104/59 02/12/17 11:38 Pulse Ox 93 L 02/12/17 11:38 Intake & Output 02/11/17 02/12/17 02/12/17 18:59 06:59 18:59 Intake Total 1200 280 517 Output Total 400 2700 Balance 800 -2420 517 Weight 100 kg Intake: Intake, IV Titration 1200 40 Amount Magnesium Sulfate-D5w Pmx 200 1 gm In Dextrose/Water 1 100ml.bag @ 100 mls/hr IVPB Q1H [facility] Rx#: [id number] Sodium Chloride 0.9% 1, 1000 000 ml @ 100 mls/hr IV . Q10H [facility] Rx#:[id number] Sodium Chloride 0.9% 1, 40 000 ml @ 20 mls/hr IV . Q24H [facility] Rx#:[id number] Oral 240 517 Output: Urine 400 2700 Other: Voiding Method Toilet # Voids 0 0 # Bowel Movements 0 - Exam PHYSICAL EXAMINATION: HEENT: Head is atraumatic, normocephalic. Pupils equal, round. Neck is supple. There is no elevated jugular venous pressure. HEART EXAMINATION: Heart S1, S2 normal. No murmur or gallop heard. CHEST EXAMINATION: Lungs are clear to auscultation and precussion. No chest wall tenderness is noted on palpation or with deep breathing. ABDOMEN: Soft, obese, nontender. Bowel sounds are heard. No organomegaly noted. Right groin soft, no evidence of any hematoma. EXTREMITIES: 2+ peripheral pulses with no evidence of peripheral edema and no calf tenderness noted. NEUROLOGIC patient is awake, alert and oriented -3. . - Labs CBC & Chem 7: 02/10/17 06:34 02/11/17 06:20 Labs: Abnormal Lab Results - Last 24 Hours (Table) 02/11/17 02/11/17 02/12/17 Range/Units 17:01 21:06 06:18 POC Glucose (mg/dL) 195 H 147 H 124 H (75-99) mg/dL 02/12/17 Range/Units 11:50 POC Glucose (mg/dL) 144 H (75-99) mg/dL Assessment and Plan Plan: Assessment and plan #1 non-ST elevation myocardial infarction, status post stenting of the LAD #2 recent admission to the hospital 2 weeks ago with a non-ST elevation [place]. Cardiac catheterization was performed at that time which revealed three-vessel coronary artery disease with a WALLPAPER EMBOSSER HELPER of the RCA, severe disease involving the LAD with evidence of in-stent restenosis and multiple segmental areas of stenosis, 60-70% circumflex stenosis in the OM, as well as an 80-90% distal stenosis. Maximal medical therapy advised at that time. #3 diabetes #4 hypertension #5 hyperlipidemia Plan We will continue the patient on his current medications. He may be able to be discharged home today from cardiology's perspective. We will make him a follow- up appointment to see Dr. Sal in the office post discharge. He will be discharged home on aspirin 81 mg daily, Lipitor 40 mg daily, lisinopril 20 mg daily, metoprolol tartrate 50 mg one tablet by mouth twice a day, Effient 10 mg daily, sublingual nitroglycerin as needed for chest pain. Patient has been provided prescriptions for all of the above medications and he has been educated regarding them as well. DNP note has been reviewed, I agree with a documented findings and plan of care. Patient was seen and examined.
--- NOTE | 2017-02-12 15:30 | P.PN ---
Progress Note - Text This is an addendum to the progress note dictated by cardiology today. Patient had been on Plavix previously secondary to prior stent placement, he read presented with a non-Q-wave myocardial infarction.. Patient now will be discharged home on Effient 10 mg daily. DNP note has been reviewed, I agree with a documented findings and plan of care. Patient was seen and examined.
[2017-02-12 15:34] VITALS: BP 124/75; PULSE 78; TEMP 97.4
== END 2017-02-12 16:49 | disposition home or self-care (01) | DRG 246 ==
LOC: EC 23:30 → 6SEL 02-10 01:42
PROVIDERS: ADMIT Hospitalist; ATTEND Hospitalist
PROC: B2111ZZ Fluoroscopy of Multiple Coronary Arteries using Low Osmolar Contrast (ICD-10-PCS; 2017-02-10)
PROC: 027037Z Dilation of Coronary Artery, One Artery with Four or More Drug-eluting Intraluminal Devices, Percutaneous Approach (ICD-10-PCS; principal; 2017-02-10 11:15)
DX: I21.4 Non-ST elevation (NSTEMI) myocardial infarction (principal); E83.42 Hypomagnesemia; J98.11 Atelectasis; T82.855D Stenosis of coronary artery stent, subsequent encounter; I22.2 Subsequent non-ST elevation (NSTEMI) myocardial infarction; I25.10 Atherosclerotic heart disease of native coronary artery without angina pectoris; I10 Essential (primary) hypertension; E11.9 Type 2 diabetes mellitus without complications; I45.10 Unspecified right bundle-branch block; E78.5 Hyperlipidemia, unspecified; M19.91 Primary osteoarthritis, unspecified site; Z87.891 Personal history of nicotine dependence; Z79.84 Long term (current) use of oral hypoglycemic drugs; Z79.4 Long term (current) use of insulin; Z79.82 Long term (current) use of aspirin; Z79.02 Long term (current) use of antithrombotics/antiplatelets; Z79.899 Other long term (current) drug therapy; Z82.49 Family history of ischemic heart disease and other diseases of the circulatory system; Z89.421 Acquired absence of other right toe(s); Y84.0 Cardiac catheterization as the cause of abnormal reaction of the patient, or of later complication, without mention of misadventure at the time of the procedure
CPT/HCPCS: 36415; 71010; 80048; 80053; 80061; 82550; 82553; 83036; 83735; 83880; 84484; 85025; 85347; 85379; 85610; 85730; 93005; 93306; 99285

== ENCOUNTER 2017-04-28 13:06 | Inpatient (IN) | payer OTHER, MEDICARE ==
[2017-04-28] MEDS ORDERED: HEPARIN SODIUM,PORCINE 5,000 UNIT/ML 1 ML VIAL IV ONE (13:27)
[2017-04-28] MEDS ORDERED: ASPIRIN 81 MG CHEW PO STA (13:27)
[2017-04-28] MEDS ORDERED: ATORVASTATIN 80 MG TAB PO STA (13:28)
[2017-04-28] MEDS: NITROGLYCERIN SL TABS 0.4 MG TAB SUBLINGUAL STA ×2 (13:29→13:35)
[2017-04-28 13:30] LABS: Glucose,Whole Blood 98 mg/dL (75-99)
--- NOTE | 2017-04-28 13:34 | ED ---
General Adult HPI - General Chief complaint: Chest Pain Stated complaint: Chest Pain Time Seen by Provider: 04/28/17 13:20 Source: patient, family, RN notes reviewed Mode of arrival: wheelchair Limitations: no limitations - History of Present Illness Initial comments: This is a 67-year-old male with a past medical history significant for multiple heart attacks and multiple stent placements with his last stent being placed in January. Patient also has a past medical history significant for diabetes hypertension high cholesterol. Patient comes in today with an hour long history of chest pain in the center of his chest he states admitted nauseated and he vomited times one. Patient also states she's very diaphoretic at the time. Patient states pain remains. Patient states he had no shortness of breath he was not lightheaded or dizzy. Patient denies any recent fever chills or cough. Patient denies any abdominal pain. Patient denies any lightheadedness dizziness or nursing about so. - Related Data Home Medications Medication Instructions Recorded Confirmed Carboxymethylcellulose Sodium 1 drop BOTH EYES TID PRN 01/24/17 02/09/17 [Refresh Tears] Insulin Aspart [NovoLOG] See Protocol SQ AC-TID 01/24/17 02/09/17 Insulin Glargine [Lantus] 40 unit SQ BID 01/24/17 02/09/17 Lisinopril [Zestril] 20 mg PO DAILY 01/24/17 02/09/17 Metoprolol Tartrate [Lopressor] 50 mg PO BID 01/24/17 02/09/17 Previous Rx's Medication Instructions Recorded Aspirin EC [Ecotrin Low Dose] 81 mg PO DAILY #30 tablet 01/26/17 Atorvastatin [Lipitor] 40 mg PO DAILY #30 tab 01/26/17 Clopidogrel [Plavix] 75 mg PO DAILY #30 tab 01/26/17 Isosorbide Mononitrate ER [Imdur] 30 mg PO DAILY #30 tab 01/26/17 Nitroglycerin Sl Tabs [Nitrostat] 0.4 mg SUBLINGUAL Q5M PRN #25 tab 01/26/17 metFORMIN HCL [Metformin HCl] 1,000 mg PO BID #0 01/26/17 Prasugrel [Effient] 10 mg PO DAILY #30 tab 02/12/17 Allergies Allergy/AdvReac Type Severity Reaction Status Date / Time No Known Allergies Allergy Verified 04/28/17 13:08 Review of Systems ROS Statement: Those systems with pertinent positive or pertinent negative responses have been documented in the HPI. ROS Other: All systems not noted in ROS Statement are negative. 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 Past Anesthesia/Blood Transfusion Reactions: No Reported Reaction Date of Last Stent Placement:: 1999 Past Psychological History: No Psychological Hx Reported Smoking Status: Former smoker Past Alcohol Use History: Occasional Past Drug Use History: None Reported - Past Family History Father Family Medical History: Myocardial Infarction (NV) Additional Family Medical History / Comment(s): Father of a NV at the age of 55yrs. Mother Family Medical History: Diabetes Mellitus Additional Family Medical History / Comment(s): Mother of complications of diabetes at the age of 56yrs. General Exam - General Exam Comments Initial Comments: GENERAL: Patient is well-developed and well-nourished. Patient is nontoxic and well- hydrated and is in mild distress. ENT: Neck is soft and supple. No significant lymphadenopathy is noted. Oropharynx is clear. Moist mucous membranes. Neck has full range of motion without eliciting any pain. EYES: The sclera were anicteric and conjunctiva were pink and moist. Extraocular movements were intact and pupils were equal round and reactive to light. Eyelids were unremarkable. PULMONARY: Unlabored respirations. Good breath sounds bilaterally. No audible rales rhonchi or wheezing was noted. CARDIOVASCULAR: There is a regular rate and rhythm without any murmurs gallops or rubs. ABDOMEN: Soft and nontender with normal bowel sounds. No palpable organomegaly was noted. There is no palpable pulsatile mass. SKIN: Skin is clear with no lesions or rashes and otherwise unremarkable. NEUROLOGIC: Patient is alert and oriented x3. Cranial nerves II through XII are grossly intact. Motor and sensory are also intact. Normal speech, volume and content. Symmetrical smile. MUSCULOSKELETAL: Normal extremities with adequate strength and full range of motion. No lower extremity swelling or edema. No calf tenderness. LYMPHATICS: No significant lymphadenopathy is noted PSYCHIATRIC: Normal psychiatric evaluation. Limitations: no limitations Course Vital Signs 04/28/17 13:08 Temperature 97 F L Pulse Rate 69 Respiratory 16 Rate Blood Pressure 180/82 O2 Sat by Pulse 96 Oximetry Medical Decision Making - Medical Decision Making EKG shows a sinus rhythm at 70 bpm UT interval 216 QRS is 110 Q-T intervals 396 QTC is 427 per patient's EKG shows ST segment elevation in leads V2 through V6. I immediately called a STEMI overhead and I Dr. Lindquist he agreed to come see the patient we were prepping the patient for Clinical Pharmacy Coordinator. Patient had nitroglycerin sublingual aspirin Lipitor and heparin bolus. - Lab Data Lab Results 04/28/17 Range/Units 13:28 POC Glucose (mg/dL) 98 (75-99) mg/dL POC Glu Lending Advisor ID Ana Luisa Rodriguez Critical Care Time Critical Care Time: Yes Total Critical Care Time: 35 Disposition Clinical Impression: ST elevation myocardial infarction (STEMI) Disposition: ADMITTED IP TO THIS HOSP Referrals: Braydon Torres DO [Primary Care Provider] - 1-2 days Time of Disposition: 13:34
[2017-04-28 13:51] LABS: Basophils # (A) 0.1 k/uL (0-0.2); Basophils % (A) 1 %; CH 30.3; CHCM 33.1; Eosinophils # (A) 0.1 k/uL (0-0.7); Eosinophils % (A) 1 %; HCT 45.4 % (39.0-53.0); HDW 2.64; HGB 14.4 gm/dL (13.0-17.5); Luc # (Auto) 0.13; Luc % (Auto) 1; Lymphocytes # (A) 0.8 k/uL (1.0-4.8); Lymphocytes % (A) 6 %; MCH 29.2 pg (25.0-35.0); MCHC 31.7 g/dL (31.0-37.0); MCV 92.1 fL (80.0-100.0); Mean Platelet Volume 8.1; Monocytes # (A) 0.7 k/uL (0-1.0); Monocytes % (A) 5 %; Neutrophils # (A) 11.2 k/uL (1.3-7.7); Neutrophils % (A) 86 %; RBC 4.93 m/uL (4.30-5.90); RDW 15.9 % (11.5-15.5); WBC (Perox) 13.04
[2017-04-28] MEDS ORDERED: MIDAZOLAM 2 MG/2 ML VIAL IV ONE (13:55)
--- NOTE | 2017-04-28 13:57 | XR ---
EXAMINATION TYPE: XR chest 1V portable DATE OF EXAM: 04/28/2017 HISTORY: chest pain. REFERENCE: Previous study dated 02/10/2017. FINDINGS: The heart is enlarged. There is mild vascular congestion. There is right basilar airspace d isease. There is atelectatic change at the left lung base. I suspect a left effusion. IMPRESSION: 1. CARDIOMEGALY. 2. BIBASILAR AIRSPACE DISEASE. 3. VASCULAR CONGESTION. 4. I SUSPECT A SMALL LEFT EFFUSION.
[2017-04-28 13:59] LABS: ALT 37 U/L (21-72); AST 29 U/L (17-59); Alkaline Phosphatase 90 U/L (38-126); Anion Gap 11 mmol/L; Blood Urea Nitrogen 12 mg/dL (9-20); Calcium 9.7 mg/dL (8.4-10.2); Carbon Dioxide 27 mmol/L (22-30); Chloride 103 mmol/L (98-107); Glucose 94 mg/dL (74-99); Magnesium 1.4 mg/dL (1.6-2.3); Non-African American GFR(MDRD) >60 (>60 ml/min/1.73 sqM); Potassium 4.4 mmol/L (3.5-5.1); Sodium 141 mmol/L (137-145); Total Bilirubin 0.6 mg/dL (0.2-1.3); Total Protein 7.1 g/dL (6.3-8.2)
[2017-04-28] MEDS ORDERED: LIDOCAINE 2% INJ 20 MG/ML SQ ONE (13:59)
[2017-04-28] MEDS ORDERED: MIDAZOLAM 2 MG/2 ML VIAL ONE (14:08)
[2017-04-28] MEDS ORDERED: LIDOCAINE 2% INJ 20 MG/ML (20 ML MDV) ONE (14:09)
[2017-04-28 14:18] LABS: Creatine Kinase 93 U/L (55-170)
[2017-04-28 14:22] LABS: Partial Thromboplastin Time 25.2 sec (22.0-30.0)
[2017-04-28] MEDS ORDERED: SODIUM CHLORIDE 0.9% 1,000 ML IV ONE (14:25)
[2017-04-28] MEDS ORDERED: BIVALIRUDIN BOLUS 250 MG/50 ML IV ONE (14:25)
[2017-04-28] MEDS ORDERED: BIVALIRUDIN 250 MG in SODIUM CHLORIDE 0.9% 50 ML IV ONE (14:25)
[2017-04-28 14:28] LABS: INR 1.1 (<1.2); Prothrombin Time 11.2 sec (9.0-12.0)
[2017-04-28 14:31] LABS: Creatine Kinase MB 2.2 ng/mL (0.0-2.4); Troponin I <0.012 ng/mL (0.000-0.034)
[2017-04-28] MEDS: NITROGLYCERIN 1000MCG/10ML SYRINGE INTRACORON ONE ×3 (14:34→14:59)
[2017-04-28] MEDS ORDERED: CLOPIDOGREL 75 MG TAB ONE ×2 (15:02→15:14)
[2017-04-28] MEDS ORDERED: MAGNESIUM SULFATE-D5W PMX 1 GM in DEXTROSE/WATER 1 100ML.BAG IVPB ONE (15:04)
[2017-04-28] MEDS ORDERED: CLOPIDOGREL 75 MG TAB PO ONE ×2 (15:04→15:10)
[2017-04-28] MEDS ORDERED: IOHEXOL 350 MG/ML 125ML BOTTLE INJ ONE (15:08)
[2017-04-28] MEDS ORDERED: ATROPINE SULFATE 0.1 MG/ML 10ML SYRINGE IV PRN (15:09)
[2017-04-28] MEDS ORDERED: RX INFO: IV CONTRAST WAS GIVEN 1 EACH MISC MISCELLANE PRN (15:09)
[2017-04-28] MEDS ORDERED: NITROGLYCERIN SL TABS 0.4 MG TAB SUBLINGUAL PRN ×2 (15:09→15:17)
[2017-04-28] MEDS ORDERED: ZOLPIDEM 5 MG TAB PO PRN (15:09)
[2017-04-28] MEDS ORDERED: MAG HYDROX/AL HYDROX/SIMETH 30 ML CUP PO PRN (15:09)
[2017-04-28] MEDS ORDERED: ARTIFICIAL TEARS-HYPROMELLOSE DROPS 15 ML BTL BOTH EYES PRN (15:17)
[2017-04-28 15:34] LABS: Glucose,Whole Blood 88 mg/dL (75-99)
[2017-04-28] MEDS: SODIUM CHLORIDE 0.9% 1,000 ML IV SCH (15:56)
[2017-04-28 16:12] VITALS: BMI 31.9
--- NOTE | 2017-04-28 17:00 | CONS ---
CONSULTATION CHIEF COMPLAINT: Chest pain. This is a 67-year-old gentleman with history of coronary artery disease who recently underwent angioplasty of enterprise LAD and has significant stenosis involving the circumflex coronary artery and right coronary artery. Comes in complaining of sudden onset chest pain, severe intensity, came on at rest associated with diaphoresis with radiation to left arm. EKG showed acute ST-segment elevation in the precordial leads suggestive of acute anterior wall myocardial infarction, probably secondary to stent thrombosis. The patient was on Effient on discharge, which he stopped, started taking Plavix and it is unclear whether there was a gap between the time he stopped the Effient and started taking Plavix. PAST MEDICAL HISTORY: Past medical history is significant for coronary artery disease, status post multivessel angioplasty, hypertension, dyslipidemia morbid obesity, non-insulin- dependent diabetes. MEDICATIONS: He is on metformin, sublingual nitroglycerin on p.r.n. basis, Lopressor 50 b.i.d., lisinopril 20 q. daily, Imdur 30 q. daily, insulin, Plavix 75 daily, Lipitor and low- dose aspirin. ALLERGIES: Allergies are as charted. FAMILY HISTORY: Negative for premature coronary artery disease. SOCIAL HISTORY: Negative for current smoking, ETOH, or drug abuse. REVIEW OF SYSTEMS: HEENT is unremarkable. CARDIAC: As described above. RESPIRATORY: Negative. GI: Negative. GENITOURINARY: Negative. ALLERGY/IMMUNOLOGICAL: Negative. SKIN: Negative. MUSCULOSKELETAL: Negative. ENDOCRINE: Negative. HEMATOLOGICAL: Negative. DERM: Negative. CONSTITUTIONAL: Negative. ONCOLOGICAL: Negative. Rest of the systems reviewed, not relevant. PHYSICAL EXAM: On exam, the patient is comfortable at rest. Vital signs are stable. There is no jugular venous distention. Chest exam is good air entry bilaterally. HEART EXAM: First and second heart sounds. No gallop. No murmur. ABDOMEN: Soft. Examination of the extremities did not reveal any edema. Peripheral pulses are felt. EKG shows acute anterior myocardial infarction. Labs are pending at this time. ASSESSMENT: Acute anterior wall myocardial infarction, probably secondary to subacute thrombosis of the LAD stent. PLAN: Patient will undergo emergent angioplasty of the LAD by Dr. Shala Coffey the on-call interventionalist. MMODL / IJN: [id number] /
[2017-04-28] MEDS: INSULIN LISPRO (humaLOG) 300 UNIT/3 ML VIAL SQ SCH ×2 (18:07→21:08)
[2017-04-28 19:52] LABS: Appearance,Urine Clear (Clear); Bilirubin,Urine Negative (Negative); Glucose,Urine (UA) 3+ (Negative); Ketones,Urine Trace (Negative); Leukocyte Esterase,Urine Negative (Negative); Nitrite,Urine Negative (Negative); Protein,Urine Negative (Negative); Specific Gravity,Urine 1.016 (1.001-1.035); UA Billing (MACRO vs. MICRO) CHEM; Urobilinogen,Urine <2.0 mg/dL (<2.0)
[2017-04-28 20:55] LABS: Glucose,Whole Blood 212 mg/dL (75-99)
[2017-04-28] MEDS: INSULIN GLARGINE 100 UNIT/ML 10 ML VIAL SQ SCH (21:07)
[2017-04-28] MEDS: METOPROLOL TARTRATE 50 MG TAB PO SCH (21:35)
[2017-04-29 04:39] LABS: Anisocytosis Slight; Basophils % (A) 0 %; CH 30.3; Eosinophils # (A) 0.1 k/uL (0-0.7); Eosinophils % (A) 2 %; HCT 42.1 % (39.0-53.0); HDW 2.57; HGB 13.6 gm/dL (13.0-17.5); Luc # (Auto) 0.09; Luc % (Auto) 1; Lymphocytes # (A) 0.6 k/uL (1.0-4.8); Lymphocytes % (A) 6 %; MCH 29.9 pg (25.0-35.0); MCHC 32.3 g/dL (31.0-37.0); MCV 92.6 fL (80.0-100.0); Mean Platelet Volume 8.1; Monocytes # (A) 0.5 k/uL (0-1.0); Monocytes % (A) 5 %; Neutrophils % (A) 86 %; RBC 4.55 m/uL (4.30-5.90); RDW 16.1 % (11.5-15.5); WBC 9.4 k/uL (3.8-10.6); WBC (Perox) 10.25
[2017-04-29 05:08] LABS: Anion Gap 7 mmol/L; Blood Urea Nitrogen 9 mg/dL (9-20); Calcium 9.1 mg/dL (8.4-10.2); Carbon Dioxide 24 mmol/L (22-30); Chloride 104 mmol/L (98-107); Glucose 248 mg/dL (74-99); Magnesium 1.4 mg/dL (1.6-2.3); Non-African American GFR(MDRD) >60 (>60 ml/min/1.73 sqM); Potassium 4.2 mmol/L (3.5-5.1); Sodium 135 mmol/L (137-145)
[2017-04-29] MEDS ORDERED: Magnesium Replacement Protocol 1 EACH MISC MISCELLANE PRN (05:21)
[2017-04-29] MEDS: MAGNESIUM SULFATE-D5W PMX 1 GM in DEXTROSE/WATER 1 100ML.BAG IVPB SCH ×5 (05:55→14:17)
[2017-04-29 07:19] LABS: Glucose,Whole Blood 220 mg/dL (75-99)
[2017-04-29 07:48] LABS: Hemoglobin A1C 7.6 % (4.2-6.1)
[2017-04-29] MEDS: INSULIN LISPRO (humaLOG) 300 UNIT/3 ML VIAL SQ SCH ×7 (08:28→21:41)
[2017-04-29] MEDS: SODIUM CHLORIDE 0.9% 1,000 ML IV SCH (08:28)
[2017-04-29] MEDS: PANTOPRAZOLE 40 MG TABLET PO SCH (08:29)
[2017-04-29] MEDS: LISINOPRIL 20 MG TAB PO SCH (08:30)
[2017-04-29] MEDS: ATORVASTATIN 80 MG TAB PO SCH (08:30)
[2017-04-29] MEDS: ASPIRIN 81 MG CHEW PO SCH (08:30)
[2017-04-29] MEDS: ISOSORBIDE MONONITRATE ER 30 MG TAB.ER.24H PO SCH (08:30)
[2017-04-29] MEDS: METOPROLOL TARTRATE 50 MG TAB PO SCH ×2 (08:30→20:04)
[2017-04-29] MEDS: CLOPIDOGREL 75 MG TAB PO SCH (08:30)
[2017-04-29] MEDS ORDERED: NON-FORMULARY DRUG (Aspirin Ec 81 MG) PO SCH (09:00)
--- NOTE | 2017-04-29 10:06 | HP ---
HISTORY AND PHYSICAL DATE OF SERVICE: 04/28/2007. CHIEF COMPLAINT: Chest discomfort. HISTORY OF PRESENT ILLNESS: This 67-year-old gentleman with a past medical history of multiple medical problems, known CAD with stent, hypertension, hyperlipidemia, followed by the [facility] in the outpatient setting, was having chest discomfort felt in the center of the chest as well as right-sided chest. It is more like discomfort and gas bubble-like feeling. The patient had some nausea and vomited one time. The patient was diaphoretic also. The patient came to [facility]. The EKG showed ST elevation in the anterior leads, acute ST elevation myocardial infarction. Patient was admitted for further evaluation and treatment. The patient also relates that he ran out of Effient and has not had Effient for the last one week. Cardiology saw the patient. The patient underwent a cardiac catheterization. Full report is pending at this time. Patient underwent stenting of the LAD as well. There is no history of fevers or rigors. No history of headaches or loss of consciousness. The patient is being closely monitored in the ICU at this time. Initial troponin negative. Magnesium is 1.4. WBC 13. PAST MEDICAL HISTORY: History of CAD with stent, history of diabetes type 2, history of hypertension, hyperlipidemia, DJD. MEDICATIONS: Prior to admission include: 1. Metformin 1000 mg p.o. b.i.d. 2. Nitrostat 0.4 mg p.r.n. 3. Lopressor 50 mg p.o. b.i.d. 4. Zestril 20 mg p.o. daily. 5. Imdur 30 mg p.o. daily. 6. Lantus 40 units subcu b.i.d. 7. NovoLog t.i.d. 9. Plavix 75 mg daily. 10.Refresh 1 drop t.i.d. p.r.n. 11.Lipitor 40 mg daily. 12.Ecotrin 81 mg daily. ALLERGIES: None. FAMILY HISTORY: History of myocardial infarction in the family. SOCIAL HISTORY: History of occasional alcohol. Previous history of smoking. REVIEW OF SYSTEMS: ENT: No diminished vision or hearing. CARDIOVASCULAR: No angina or palpitations. RESPIRATORY: No cough or hemoptysis. GI: No nausea. : No dysuria. NERVOUS SYSTEM: No deficits. MUSCULOSKELETAL: As mentioned. HEMATOLOGY: As mentioned. ENDOCRINE: History of diabetes. No hypothyroidism. CONSTITUTIONAL: As mentioned. PSYCHIATRY: As mentioned. PHYSICAL EXAMINATION: GENERAL: Alert, oriented x3. VITAL SIGNS: Pulse 83, blood pressure 112/80, respirations 18, pulse ox 98% on 2 L. HEENT: Conjunctivae normal. Oral mucosa moist. NECK: No jugular venous distention. No lymph node enlargement. CARDIOVASCULAR: S1, S2. LUNGS: Breath sounds diminished at the bases. A few scattered rhonchi and crackles. ABDOMEN: Soft, nontender, obese. No mass palpable. EXTREMITIES: Legs no edema. No swelling. NERVOUS SYSTEM: Higher functions as mentioned. Moves all limbs equally. SKIN: No rashes. LABS: WBC 13, hemoglobin is 14.4, magnesium 1.4. ASSESSMENT: 1. Acute ST-segment elevation myocardial infarction, status post cardiac stenting of the left anterior descending artery. 2. Increased WBC. 3. Hypomagnesemia. 4. History of coronary artery disease with stent. 5. Diabetes mellitus type 2. 6. Hypertension. 7. Hyperlipidemia. 8. History of degenerative joint disease. RECOMMENDATIONS AND DISCUSSION: In this 67-year-old gentleman who presented with multiple complex medical issues , we will monitor the patient closely, continue the current management and symptomatic treatment. Otherwise at this time I recommend dual antiplatelet treatment. Monitor blood sugars closely. Accu-Cheks with meals and at bedtime to scale. Closely follow with Cardiology. Repeat labs including troponin. Further recommendations to follow. The prognosis is guarded because of multiple complex medical issues. We will hold the metformin at this time. Also recommend UA with micro. A chest x-ray was done at the time of admission, showed cardiomegaly and bibasilar airspace disease also, most likely could be atelectasis. We will recommend incentive spirometry. Continue to monitor. Prognosis guarded. MMODL / IJN: [id number] / FARIDA
--- NOTE | 2017-04-29 10:31 | CC ---
CARDIAC CATHETERIZATION REPORT This is a cardiac catheterization. INDICATION: Acute anterior wall myocardial infarction. PROCEDURE: After obtaining informed consent, the left heart catheterization and coronary angiogram was performed via the right femoral artery using standard Sherry catheters. The patient tolerated the procedure well without any obvious immediate complications. Patient received conscious sedation. Total sedation time was 15 minutes. FINDINGS: 1. Hemodynamics: Left ventricular end-diastolic pressure is 16 mm. There is no significant gradient across the aortic valve. 2. Left ventriculogram: Left ventriculogram is not performed. ANGIOGRAPHIC DATA: 1. Left main coronary artery is a normal-sized vessel and is free of stenosis and divides into left anterior descending coronary artery and circumflex coronary artery. 2. Circumflex coronary artery is a large dominant vessel that gives out extensive collaterals to the right coronary artery that is chronically occluded. There is a proximal area of stenosis within the circumflex coronary artery. As noted the bifurcation into AV groove circ and the large OM branch that has about a 60 to 70% stenosis. The AV groove circ in the ostial portion shows a 70% stenosis. 3. LAD is totally occluded in its mid portion. 4. Right coronary artery was not selectively engaged. CONCLUSIONS: 1. Acute occlusion of the mid LAD. 2. Severe stenosis involving the ostial portion of the AV groove circ and in the circ as it bifurcates into OM and AV groove circ. PLAN: Patient will undergo angioplasty of the LAD by Dr. Shala Coffey, the on-call residential advisor. MMPEREZ / IVELISSE: [id number] /
--- NOTE | 2017-04-29 10:45 | PTCA ---
PERCUTANEOUSTRANS CORORONARY ANGIOGRAPHY DATE OF SERVICE: 04/28/2017 PROCEDURE: PTCA and stenting of a totally occluded mid LAD, performed in the setting of an acute ST-elevation myocardial infarction. PERFORMED BY: Dr. Quinn Coffey. CLINICAL INFORMATION: Mr. Drew Freitas is a 67-year-old gentleman with a known history of type 2 diabetes, hypertension, hyperlipidemia, who sees Dr. Amaro in the outpatient setting. He is noted to have multiple stents to the LAD. He presented with chest pain and had anterior ST elevation. Dr. Amaro performed cardiac cath which revealed that the previously stented LAD was totally occluded in the mid portion, the total occlusion was within the stent and also beyond the stent there was no flow at all. The patient had extensive stenting of the LAD performed as recently as January. However, it is unclear if he has been taking his Plavix or not on a regular basis. He stopped Effient and he says he took a replacement but the [place] has no record of giving this to him. PROCEDURE NOTE: The existing 6-Nepalese introducer in the femoral artery was used to perform the procedure. I used a standard left Sherry guide catheter to cannulate the left coronary artery. A whisper wire was used to cross the total occlusion. I pre-dilated with a 2.5 caliber 20 mm long Trek balloon. Decent result was achieved. We obtained reperfusion within 85 minutes. Subsequently I tried to advance a 2.25 caliber 18 mm stent but I had considerable difficulty in the midportion of the vessel within the stented segment. I noted that there was an eccentric lesion there. I dilated this with a 2.75 caliber NC Trek balloon at 15 atmospheres. There was modest improvement. I then went ahead and deployed the same 18 mm long 2.25 caliber Xience stent and then post dilated this with a 2.75 caliber NC Trek balloon at 15 atmospheres. Subsequently, using 2 wires, 1 was a whisper wire and 1 was a BMW wire, I was able to advance a 2.25 caliber 12 mm long PROMUS stent and deployed this at the site of total occlusion. The patient had chest pain and anterior ST elevation. He had excellent angiographic result. He received 600 mg of Plavix. He also received Angiomax bolus and infusion as per protocol. The sheath was taken out. An Angio-Seal device was used to secure hemostasis. He was sent to the room in a stable condition. Excellent angiographic result without complication was achieved. Results were discussed with the patient and family. Moderate conscious sedation was provided for a total duration of 45 minutes. The patient was given versed and Bentyl. He was observed closely. WILBER / IVELISSE: [id number] /
[2017-04-29 11:53] LABS: Anion Gap 7 mmol/L; Blood Urea Nitrogen 7 mg/dL (9-20); Calcium 9.2 mg/dL (8.4-10.2); Carbon Dioxide 25 mmol/L (22-30); Chloride 102 mmol/L (98-107); Glucose 235 mg/dL (74-99); Magnesium 1.9 mg/dL (1.6-2.3); Non-African American GFR(MDRD) >60 (>60 ml/min/1.73 sqM); Potassium 4.4 mmol/L (3.5-5.1); Sodium 134 mmol/L (137-145)
[2017-04-29 11:55] LABS: Glucose,Whole Blood 201 mg/dL (75-99)
--- NOTE | 2017-04-29 13:31 | PN ---
PROGRESS NOTE 67-year-old gentleman is admitted to hospital with acute anterior wall myocardial infarction. Underwent an emergent cardiac catheterization angioplasty of the [place] LAD. His peak troponin is 53. This morning, he is doing well and is free of cardiac symptoms. Denies chest pain or difficulty in breathing. LABS: Potassium of 4.4, creatinine is 0.6. EXAM: Comfortable at rest. Vital signs are stable. There is no jugular venous distention. Chest exam reveals good air entry bilaterally. Heart exam reveals first and second heart sounds. No gallop. No murmur. Abdomen is soft. Exam of extremities did not reveal any edema. Peripheral pulses are felt fine. Groin is free of bleeding, bruit or hematoma. EKG shows sinus rhythm with evidence of recent anteroseptal myocardial infarction. ASSESSMENT: Acute anterolateral myocardial infarction, status post cardiac catheterization angioplasty of LAD. PLAN: Patient is doing well. He will continue the aspirin, Lipitor, Plavix, insulin, Imdur 30 mg daily, Zestril 20 mg daily, Lopressor 50 b.i.d. He is doing well and can be transferred to [facility]. Hopefully can be discharged home on Sunday. MMODL / IJN: [id number] /
[2017-04-29 17:22] LABS: Glucose,Whole Blood 211 mg/dL (75-99)
[2017-04-29 20:53] LABS: Glucose,Whole Blood 274 mg/dL (75-99)
[2017-04-29] MEDS: INSULIN GLARGINE 100 UNIT/ML 10 ML VIAL SQ SCH (21:41)
--- NOTE | 2017-04-29 22:04 | PN ---
PROGRESS NOTE DATE OF SERVICE: 04/29/2017 This is a progress note. INTERVAL HISTORY: This 67-year-old gentleman admitted with acute myocardial infarction underwent left, also had stenting of the LAD. The patient is being closely monitored. No chest pain. No palpitations. No fever. EXAM: Alert and oriented times three. Pulse 76, blood pressure 108/62, respiration 18, temperature 98.6, pulse ox 94% room air. HEENT: Conjunctivae normal. Neck: No jugular venous distention. Cardiovascular: S1, S2 muffled. Respiratory: Breath sounds diminished in the bases. No rhonchi. No crackles. Abdomen is soft, nontender. Legs no edema. No swelling. Central nervous system: No focal deficits. LAB: Sodium 135. CBC noted. Troponin 63.400. ASSESSMENT: 1. Acute ST-segment elevation anterior wall myocardial infarction, status post cardiac catheterization and stenting of the LAD. 2. Increased WBC. 3. Hypomagnesemia. 4. History of coronary artery disease/stent. 5. Diabetes type 2. 6. Hypertension. 7. Hyperlipidemia. 8. History of degenerative joint disease. RECOMMENDATIONS AND DISCUSSION: Recommend to continue current management and continue symptomatic treatment. Otherwise at this time, I recommend continue with dual antiplatelet treatment as well as beta- blockers. Continue to monitor. 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 Further recommendations to follow. MMODL / IJN: [id number] /
[2017-04-30 06:41] LABS: Glucose,Whole Blood 160 mg/dL (75-99)
[2017-04-30] MEDS: PANTOPRAZOLE 40 MG TABLET PO SCH (06:48)
[2017-04-30] MEDS: INSULIN LISPRO (humaLOG) 300 UNIT/3 ML VIAL SQ SCH ×7 (06:49→21:32)
[2017-04-30 08:51] LABS: Anisocytosis Slight; Basophils # (A) 0.1 k/uL (0-0.2); Basophils % (A) 1 %; CH 30.5; CHCM 33.5; Eosinophils # (A) 0.2 k/uL (0-0.7); Eosinophils % (A) 3 %; HCT 41.2 % (39.0-53.0); HDW 2.48; HGB 13.5 gm/dL (13.0-17.5); Luc # (Auto) 0.13; Luc % (Auto) 2; Lymphocytes % (A) 14 %; MCH 30.1 pg (25.0-35.0); MCHC 32.8 g/dL (31.0-37.0); MCV 91.7 fL (80.0-100.0); Mean Platelet Volume 8.6; Monocytes # (A) 0.6 k/uL (0-1.0); Monocytes % (A) 8 %; Neutrophils # (A) 5.3 k/uL (1.3-7.7); Neutrophils % (A) 73 %; WBC 7.2 k/uL (3.8-10.6); WBC (Perox) 7.72
[2017-04-30 09:08] LABS: Anion Gap 9 mmol/L; Blood Urea Nitrogen 8 mg/dL (9-20); Calcium 9.1 mg/dL (8.4-10.2); Carbon Dioxide 26 mmol/L (22-30); Chloride 103 mmol/L (98-107); Glucose 160 mg/dL (74-99); Non-African American GFR(MDRD) >60 (>60 ml/min/1.73 sqM); Potassium 3.8 mmol/L (3.5-5.1); Sodium 138 mmol/L (137-145)
--- NOTE | 2017-04-30 09:13 | P.PN ---
Subjective Principal diagnosis: Acute anterior wall myocardial infarction Patient is admitted to hospital with acute anterolateral myocardial infarction secondary to stent thrombosis related to not taking the Plavix. Patient had a prescription sitting at the [facility] but he never filled it. This morning patient is doing well denies chest pain or difficulty in breathing. There is no history of dizziness palpitations or syncope. He had there are rare PVCs. EKG shows evidence of anterior wall myocardial infarction. I will obtain a 2-D echo to document LV function. Objective - Vital Signs Vital signs: Vital Signs Temp 98.5 F 04/30/17 04:00 Pulse 87 04/30/17 08:54 Resp 14 04/30/17 04:00 BP 133/71 04/30/17 08:54 Pulse Ox 97 04/30/17 08:54 Intake & Output 04/29/17 04/30/17 04/30/17 18:59 06:59 18:59 Intake Total 912 0 180 Output Total 4200 Balance -3288 0 180 Weight 102.7 kg Intake: IV 290 0 0.9 NACL 290 0 Intake, IV Titration 200 Amount Magnesium Sulfate-D5w Pmx 100 1 gm In Dextrose/Water 1 100ml.bag @ 100 mls/hr IVPB Q1H JOSE CRUZ Rx#: [id number] Magnesium Sulfate-D5w Pmx 100 1 gm In Dextrose/Water 1 100ml.bag @ 100 mls/hr IVPB Q1H JOSE CRUZ Rx#: [id number] Oral 422 180 Output: Urine 4200 Other: # Voids 2 - Exam Patient is comfortable at rest vital signs are stable there is no jugular venous distention carotid upstroke is normal there is no bruit chest exam reveals good air entry bilaterally heart exam reveals first and second heart sounds no gallop abdomen is soft exam extremities did not reveal any edema per for pulses are felt - Labs CBC & Chem 7: 04/30/17 05:37 04/29/17 11:30 Labs: Abnormal Lab Results - Last 24 Hours (Table) 04/29/17 04/29/17 04/29/17 Range/Units 11:30 11:53 17:20 RDW (11.5-15.5) % Sodium 134 L (137-145) mmol/L BUN 7 L (9-20) mg/dL Creatinine 0.65 L (0.66-1.25) mg/dL Glucose 235 H (74-99) mg/dL POC Glucose (mg/dL) 201 H 211 H (75-99) mg/dL 04/29/17 04/30/17 04/30/17 Range/Units 20:51 05:37 06:40 RDW 16.0 H (11.5-15.5) % Sodium (137-145) mmol/L BUN (9-20) mg/dL Creatinine (0.66-1.25) mg/dL Glucose (74-99) mg/dL POC Glucose (mg/dL) 274 H 160 H (75-99) mg/dL Assessment and Plan Plan: Status post acute anterior wall myocardial infarction Patient is doing well and review the echocardiogram continue the medications ambulate him discharged home tomorrow
[2017-04-30] MEDS: ASPIRIN 81 MG CHEW PO SCH (10:05)
[2017-04-30] MEDS: METOPROLOL TARTRATE 50 MG TAB PO SCH ×2 (10:06→20:08)
[2017-04-30] MEDS: ATORVASTATIN 80 MG TAB PO SCH (10:06)
[2017-04-30] MEDS: ISOSORBIDE MONONITRATE ER 30 MG TAB.ER.24H PO SCH (10:06)
[2017-04-30] MEDS: CLOPIDOGREL 75 MG TAB PO SCH (10:06)
--- NOTE | 2017-04-30 11:20 | ECHOF ---
Referral Reason:mi MEASUREMENTS -------- HEIGHT: 180.3 cm WEIGHT: 102.5 kg BP: 133/71 IVSd: 1.1 cm (0.6 - 1.1) LVIDd: 4.7 cm (3.9 - 5.3) LVPWd: 1.2 cm (0.6 - 1.1) IVSs: 1.2 cm LVIDs: 3.7 cm LVPWs: 1.0 cm LAESV Index (A-L): 27.99 ml/m Ao Diam: 3.8 cm (2.0 - 3.7) AV Cusp: 1.5 cm (1.5 - 2.6) LA Diam: 4.6 cm (2.7 - 3.8) MV EXCURSION: 9.111 mm (> 18.000) MV EF SLOPE: 119 mm/s (70 - 150) EPSS: 1.4 cm MV E Hermilo: 0.80 m/s MV DecT: 173 ms MV A Hermilo: 1.04 m/s MV E/A Ratio: 0.77 RAP: 5.00 mmHg RVSP: 9.06 mmHg FINDINGS -------- Sinus rhythm. This was a technically good study. The left ventricular size is normal. Left ventricular wall thickness is normal. Overall left ventricular systolic function is mild-moderately impaired with, an EF between 40 - 45 %. Apical anterior LV wall motion is hypokinetic. Apical inferior LV wall motion is hypokinetic. Anterseptal Hypokinesis The right ventricle is normal in size and function. The left atrium is mildly dilated. The right atrium is normal in size. Aortic valve is trileaflet and is mildly thickened. There is trace mitral regurgitation. Trace tricuspid regurgitation present. The right ventricular systolic pressure, as measured by Doppler, is 9.06mmHg. Pulmonic valve appears structurally normal. The aortic root, ascending aorta and aortic arch are normal. The pericardium is normal. CONCLUSIONS -------- 1. Sinus rhythm. 2. The left atrium is mildly dilated. 3. The right atrium is normal in size. 4. Aortic valve is trileaflet and is mildly thickened. 5. There is trace mitral regurgitation. 6. Trace tricuspid regurgitation present. 7. The right ventricular systolic pressure, as measured by Doppler, is 9.06mmHg. 8. Pulmonic valve appears structurally normal. 9. The aortic root, ascending aorta and aortic arch are normal. 10. The pericardium is normal. 11. This was a technically good study. 12. The left ventricular size is normal. 13. Left ventricular wall thickness is normal. 14. Overall left ventricular systolic function is mild-moderately impaired with, an EF between 40 - 45 %. 15. Apical anterior LV wall motion is hypokinetic. 16. Apical inferior LV wall motion is hypokinetic. 17. Anterseptal Hypokinesis 18. The right ventricle is normal in size and function. STAFF ACCOUNTANT: Maria Victoria Smith RDCS
[2017-04-30 11:47] LABS: Glucose,Whole Blood 184 mg/dL (75-99)
[2017-04-30] MEDS: LISINOPRIL 20 MG TAB PO SCH (13:00)
[2017-04-30 16:36] LABS: Glucose,Whole Blood 154 mg/dL (75-99)
--- NOTE | 2017-04-30 19:37 | PN ---
PROGRESS NOTE DATE OF SERVICE: 04/30/2017 This 67-year-old gentleman who was admitted with acute myocardial infarction had stenting. No chest pain. No palpitations. No fever. The patient is on Plavix. PHYSICAL EXAM: Alert and oriented x3. Pulse 87, blood pressure 130/71, respiration 14, temperature 97.5, pulse ox 94% on HEENT: Conjunctivae normal. NECK: No jugular venous distention. CARDIOVASCULAR SYSTEM: S1, S2 muffled. RESPIRATION: Breath sounds diminished at the bases. No rhonchi. No crackles. ABDOMEN: Soft, non-tender. LEGS: No edema. No swelling. NERVOUS SYSTEM: No focal deficit. LABS: Accu-Cheks 160, 184. ASSESSMENT: 1. Acute [id number]-thtgnpaey anterior wall myocardial infarction, status post cardiac catheterization and stenting of the LAD. 2. Increased white count, possibly reactive. 3. Hypomagnesemia. 4. History of coronary artery disease and stent. 5. Diabetes mellitus, type 2. 6. Hypertension. 7. Hyperlipidemia. 8. History of degenerative joint disease. RECOMMENDATIONS AND DISCUSSION: I recommend to continue current medication, continue symptomatic treatment. Continue to monitor. Continue with dual antiplatelet treatment. Closely follow with Cardiology. Guarded prognosis. Further recommendations to follow. MMODL / IJN: [id number] /
[2017-04-30 21:19] LABS: Glucose,Whole Blood 116 mg/dL (75-99)
[2017-04-30] MEDS: INSULIN GLARGINE 100 UNIT/ML 10 ML VIAL SQ SCH (21:32)
[2017-05-01 06:12] LABS: Glucose,Whole Blood 164 mg/dL (75-99)
[2017-05-01] MEDS: PANTOPRAZOLE 40 MG TABLET PO SCH (06:58)
[2017-05-01] MEDS: INSULIN LISPRO (humaLOG) 300 UNIT/3 ML VIAL SQ SCH ×4 (06:58→12:23)
[2017-05-01] MEDS: ISOSORBIDE MONONITRATE ER 30 MG TAB.ER.24H PO SCH (08:38)
[2017-05-01] MEDS: ASPIRIN 81 MG CHEW PO SCH (08:38)
[2017-05-01] MEDS: LISINOPRIL 20 MG TAB PO SCH (08:38)
[2017-05-01] MEDS: ATORVASTATIN 80 MG TAB PO SCH (08:38)
[2017-05-01] MEDS: METOPROLOL TARTRATE 50 MG TAB PO SCH (08:38)
[2017-05-01] MEDS: CLOPIDOGREL 75 MG TAB PO SCH (08:38)
--- NOTE | 2017-05-01 10:49 | P.PN ---
Subjective Principal diagnosis: Acute anterior wall myocardial infarction This is a pleasant 67-year-old gentleman who presented to the hospital with an acute anterior wall myocardial infarction. Patient underwent angioplasty with stent placement of the left anterior descending artery. He was seen and examined this morning, denied any chest pain, no difficulty in breathing. He has been up ambulating in the hallway without any difficulty. Blood pressure this morning 110/60 with a heart rate in the 70s. Patient is currently on aspirin 81 mg daily, Lipitor 80 mg daily, Plavix 75 mg daily, Imdur 30 mg daily, lisinopril 20 mg daily, metoprolol tartrate 50 mg twice a day. He will be discharged home today, he'll have a follow-up appointment with Dr. Amaro in 3 weeks post discharge. Objective - Vital Signs Vital signs: Vital Signs Temp 97 F L 05/01/17 08:00 Pulse 85 05/01/17 08:00 Resp 16 05/01/17 08:00 BP 99/67 05/01/17 08:00 Pulse Ox 95 05/01/17 08:00 Intake & Output 04/30/17 05/01/17 05/01/17 18:59 06:59 18:59 Intake Total 597 0 180 Output Total 200 Balance 397 0 180 Weight 98.7 kg Intake: IV 0 0.9 NACL 0 Oral 597 180 Output: Urine 200 Other: # Voids 200 1 - Exam PHYSICAL EXAMINATION: HEENT: Head is atraumatic, normocephalic. Pupils equal, round. Neck is supple. There is no elevated jugular venous pressure. HEART EXAMINATION: Heart S1, S2 normal. No murmur or gallop heard. CHEST EXAMINATION: Lungs are clear to auscultation and precussion. No chest wall tenderness is noted on palpation or with deep breathing. ABDOMEN: Soft, nontender. Bowel sounds are heard. No organomegaly noted. Right groin soft, no evidence of any hematoma. EXTREMITIES: 2+ peripheral pulses with no evidence of peripheral edema and no calf tenderness noted. NEUROLOGIC patient is awake, alert and oriented -3. . - Labs CBC & Chem 7: 04/30/17 05:37 04/30/17 05:37 Labs: Abnormal Lab Results - Last 24 Hours (Table) 04/30/17 04/30/17 04/30/17 Range/Units 11:44 16:35 21:14 POC Glucose (mg/dL) 184 H 154 H 116 H (75-99) mg/dL 05/01/17 Range/Units 06:08 POC Glucose (mg/dL) 164 H (75-99) mg/dL Assessment and Plan (1) AMI anterior wall Status: Acute (2) Presence of stent in LAD coronary artery Status: Acute (3) Diabetes Status: Acute (4) HTN (hypertension) Status: Acute (5) Hyperlipemia Status: Acute Plan: From cardiology's perspective, patient may be able to be discharged home today. A follow-up appointment will be made with Dr. Amaro in the office in 3 weeks. His charge medications include aspirin 81 mg daily, Lipitor 80 mg daily, Plavix 75 mg daily, insulin as at home, Imdur 30 mg daily, lisinopril 20 mg daily, metoprolol tartrate 50 mg one tablet by mouth twice a day, Protonix 40 mg daily, and sublingual nitroglycerin as needed for chest pain. Patient has been provided prescriptions for each of the above medications and educated regarding them. DNP note has been reviewed, I agree with a documented findings and plan of care. Patient was seen and examined.
[2017-05-01 14:14] VITALS: BP 112/58; PULSE 79; RESP 18; TEMP 96.2
--- NOTE | 2017-05-01 15:19 | P.DS ---
Providers Date of admission: 04/28/17 13:43 Expected date of discharge: 05/01/17 Attending physician: Jb Castro. Consults: 04/28/17 15:09 Consult Physician Routine Consulting Provider: [facility] Consult Reason/Comments: Post Interventional patient Do you want consulting provider notified?: Already Contacted [facility] Course: Final Diagnoses: 1. Acute STEMI, anterior wall UT, status post cardiac catheterization and stenting of the LAD. 2. Diabetes mellitus type 2 3. Hypertension 4. Hyperlipidemia Hospital course: This is a 59-year-old gentleman admitted with acute UT. EKG reported acute ST segment elevation of the precordial leads .Troponin less than 0.012, 44.800, 53.400. Evaluated by cardiology. Underwent cardiac catheterization/angioplasty with stenting of the LAD. Tolerated procedure well. Echo reporting [id number] impaired LV function, EF 40-45%. Cleared by cardiology for discharge. Patient is being discharged home in a stable condition with guarded prognosis. The impression and plan of care has been dictated as directed as a scribe. .: I performed a H&P examination of this patient and discussed the same with the dictator. I agree with the dictator's note. Any additional findings/opinions/ etc. will be noted. Patient Condition at Discharge: Stable Plan - Discharge Summary New Discharge Prescriptions: New Atorvastatin [Lipitor] 80 mg PO DAILY #30 tab Continue Metoprolol Tartrate [Lopressor] 50 mg PO BID Lisinopril [Zestril] 20 mg PO DAILY Insulin Glargine [Lantus] 40 unit SQ BID Carboxymethylcellulose Sodium [Refresh Tears] 1 drop BOTH EYES TID PRN PRN Reason: Dry Eye(S) Insulin Aspart [NovoLOG] See Protocol SQ AC-TID Clopidogrel [Plavix] 75 mg PO DAILY #30 tab Isosorbide Mononitrate ER [Imdur] 30 mg PO DAILY #30 tab Nitroglycerin Sl Tabs [Nitrostat] 0.4 mg SUBLINGUAL Q5M PRN #25 tab PRN Reason: Chest Pain metFORMIN HCL [Metformin HCl] 1,000 mg PO BID #0 Aspirin EC [Ecotrin Low Dose] 81 mg PO DAILY #30 tablet. Ferrous Sulfate [Iron (65 MG Elemental)] 325 mg PO DAILY Discontinued Atorvastatin [Lipitor] 40 mg PO DAILY #30 tab Discharge Medication List Carboxymethylcellulose Sodium [Refresh Tears] 1 drop BOTH EYES TID PRN 01/24/17 [History] Insulin Aspart [NovoLOG] See Protocol SQ AC-TID 01/24/17 [History] Insulin Glargine [Lantus] 40 unit SQ BID 01/24/17 [History] Lisinopril [Zestril] 20 mg PO DAILY 01/24/17 [History] Metoprolol Tartrate [Lopressor] 50 mg PO BID 01/24/17 [History] Aspirin EC [Ecotrin Low Dose] 81 mg PO DAILY #30 tablet. 01/26/17 [Rx] Clopidogrel [Plavix] 75 mg PO DAILY #30 tab 01/26/17 [Rx] Isosorbide Mononitrate ER [Imdur] 30 mg PO DAILY #30 tab 01/26/17 [Rx] Nitroglycerin Sl Tabs [Nitrostat] 0.4 mg SUBLINGUAL Q5M PRN #25 tab 01/26/17 [Rx ] metFORMIN HCL [Metformin HCl] 1,000 mg PO BID #0 01/26/17 [Rx] Ferrous Sulfate [Iron (65 MG Elemental)] 325 mg PO DAILY 04/28/17 [History] Atorvastatin [Lipitor] 80 mg PO DAILY #30 tab 05/01/17 [Rx] Follow up Appointment(s)/Referral(s): Braydon Torres DO [Primary Care Provider] - 05/02/17 1:30 pm ([facility] [place] phone number is [phone]) Jamel Amaro MD [STAFF PHYSICIAN] - 05/22/17 2:00 pm Ambulatory/Diagnostic Orders: Complete Blood Count w/diff [LAB.AMB] Time Frame: 3 Days, Location: Determined By Patient Patient Instructions/Handouts: *Surgery [facility] - After Heart Catheterization - Magnetic Resonance Technologist Instructions, Myocardial Infarction (DC), Left Heart Catheterization (DC), Acute Coronary Syndrome (DC) Activity/Diet/Wound Care/Special Instructions: 90 day free supply of Plavix filled in [facility] Diet Consistent carb, cardiac Accu-Cheks before meals and at bedtime Activity: Limited until follow up
== END 2017-05-01 16:06 | disposition home or self-care (01) | DRG 247 ==
LOC: EC 13:06 → 6ICU 13:43 → 6SEL 04-29 16:02
PROVIDERS: ADMIT Hospitalist; ATTEND Hospitalist
PROC: B2111ZZ Fluoroscopy of Multiple Coronary Arteries using Low Osmolar Contrast (ICD-10-PCS; 2017-04-28)
PROC: 027035Z Dilation of Coronary Artery, One Artery with Two Drug-eluting Intraluminal Devices, Percutaneous Approach (ICD-10-PCS; principal; 2017-04-28 13:58)
PROC: 4A023N7 Measurement of Cardiac Sampling and Pressure, Left Heart, Percutaneous Approach (ICD-10-PCS; 2017-04-28 13:58)
DX: I21.02 ST elevation (STEMI) myocardial infarction involving left anterior descending coronary artery (principal); T82.855A Stenosis of coronary artery stent, initial encounter; E83.42 Hypomagnesemia; I10 Essential (primary) hypertension; E11.9 Type 2 diabetes mellitus without complications; E78.5 Hyperlipidemia, unspecified; I25.10 Atherosclerotic heart disease of native coronary artery without angina pectoris; I25.2 Old myocardial infarction; I49.3 Ventricular premature depolarization; E66.01 Morbid (severe) obesity due to excess calories; M19.90 Unspecified osteoarthritis, unspecified site; Z79.02 Long term (current) use of antithrombotics/antiplatelets; Z79.4 Long term (current) use of insulin; Z79.82 Long term (current) use of aspirin; Z79.899 Other long term (current) drug therapy; Z87.891 Personal history of nicotine dependence; Z82.49 Family history of ischemic heart disease and other diseases of the circulatory system
CPT/HCPCS: 36415; 71010; 80048; 80053; 81003; 82550; 82553; 83036; 83735; 84484; 85025; 85610; 85730; 93005; 93306; 93458; 96374; 96375; 99291